=== PATIENT | female | born 1990 | race Caucasian/White ===

== ENCOUNTER → 2018-08-23 12:16 | Outpatient (CLI) | payer OTHER, SELFPAY ==
[2018-08-23 12:39] LABS: Basophils % 0.3 % (0.1-2.0); Eosinophils # 0.1 K/mm3 (0.0-0.4); Eosinophils % 1.4 % (0.1-12.0); Hemoglobin 12.3 g/dL (12.2-16.2); Lymphocytes # 2.2 K/mm3 (0.7-4.5); Lymphocytes % 33.7 % (10-50); Mean Corpuscular HGB Conc 34.3 g/dL (31.8-35.4); Mean Corpuscular Hemoglobin 31.9 pg (27.0-31.2); Mean Corpuscular Volume 92.9 fl (81-99); Mean Platelet Volume 7.1 fl (7.4-10.4); Monocytes # 0.4 K/mm3 (0.1-1.0); Monocytes % 6.8 % (1.7-9.3); Neutrophils # 3.7 K/mm3 (1.8-7.8); Neutrophils % 57.8 % (37.0-80.0); Platelet Count 355 K/mm3 (142-424); Red Blood Count 3.87 M/mm3 (4.20-5.40); Red Cell Distribution Width 12.5 % (11.5-17.5); White Blood Count 6.4 K/mm3 (4.8-10.8)
[2018-08-24 08:40] LABS: HIV Screen 4th Generation wRfx Non Reactive (Non Reactive)
[2018-08-24 23:13] LABS: Hepatitis B Surface Antigen Negative (Negative); Hepatitis C Antibody <0.1 s/co ratio (0.0-0.9); Rapid Plasma Reagin Ab Titer Non Reactive (NonRea<1:1)
== END ==
PROVIDERS: Visit Provider Nurse Practitioner Obstetrics & Gynecology
DX: Z34.90 Encounter for supervision of normal pregnancy, unspecified, unspecified trimester (principal)
CPT/HCPCS: 36415; 85025; 86592; 86703; 86762; 86850; 87340; 87380; G0432

== ENCOUNTER → 2018-08-30 14:16 | Outpatient (CLI) | payer OTHER, SELFPAY ==
--- NOTE | 2018-08-30 14:21 | US_ITS ---
US OB transvaginal HISTORY: ITS.REASON: US OB Dates ORDERING PHYSICIAN: Olegario Huitron MD PATIENT AGE: 28 years COMPARISON: None FINDINGS: There is an intrauterine gestational sac noted. Within this sac there are 2 circular areas of echogenicity which have the appearance of 2 different yolk sacs. A definite pole is not identified. There is a 19 mm right corpus luteum cyst. No cul-de-sac fluid evident. IMPRESSION: There is an each uterine gestational sac however a pole is not identified. But appears to represent 2 different yolk sacs are noted. Cannot confirm viability at this time. Recommend follow-up ultrasound and serial beta hCGs
== END ==
PROVIDERS: PCP Family Medicine; Visit Provider Nurse Practitioner Obstetrics & Gynecology
DX: O26.841 Uterine size-date discrepancy, first trimester (principal); Z34.90 Encounter for supervision of normal pregnancy, unspecified, unspecified trimester
CPT/HCPCS: 36415; 76817; 84702

== ENCOUNTER → 2018-09-06 14:44 | Outpatient (CLI) | payer OTHER, SELFPAY ==
--- NOTE | 2018-09-06 14:47 | US_ITS ---
US OB transvaginal HISTORY: ITS.REASON: US OB Dates ORDERING PHYSICIAN: Olegario Huitron MD PATIENT AGE: 28 years COMPARISON: None FINDINGS: An intrauterine gestational sac is present with a pole with a crown-rump length of 0.50cm correlating to gestational age of 6w2d. heart tones are not identified. There is only one yolk sac noted on today's study. There is a 2 cm right corpus luteum cyst. IMPRESSION: 1. There is an intrauterine gestational sac now with a pole with an estimated gestational age of 6 weeks and 2 days. heart tones are not identified. Recommend follow-up ultrasound to confirm viability. 2. 2 cm right-sided corpus luteum cyst
== END ==
PROVIDERS: PCP Family Medicine; Visit Provider Nurse Practitioner Obstetrics & Gynecology
DX: O26.841 Uterine size-date discrepancy, first trimester (principal)
CPT/HCPCS: 76817

== ENCOUNTER → 2018-09-13 14:38 | Outpatient (CLI) | payer OTHER, SELFPAY ==
--- NOTE | 2018-09-13 14:42 | US_ITS ---
US OB transvaginal HISTORY: ITS.REASON: US OB T/V- check for viable ORDERING PHYSICIAN: Olegario Huitron MD PATIENT AGE: 28 years COMPARISON: None FINDINGS: There is an intrauterine gestational sac present. No pole or yolk sac is evident. The gestational sac has a semilunar appearance. Previously a pole was identified but no heart tones were evident. There is a 2 cm right corpus luteum cyst. IMPRESSION: Nonviable intrauterine gestation. The gestational sac is now empty.
== END ==
PROVIDERS: PCP Family Medicine; Visit Provider Nurse Practitioner Obstetrics & Gynecology
DX: Z34.90 Encounter for supervision of normal pregnancy, unspecified, unspecified trimester (principal)
CPT/HCPCS: 76817

== ENCOUNTER → 2020-01-23 11:41 | Outpatient (CLI) | payer MEDICAID, SELFPAY ==
[2020-01-23 12:13] LABS: Basophils % 0.4 % (0.1-2.0); Eosinophils # 0.1 K/mm3 (0.0-0.4); Eosinophils % 1.1 % (0.1-12.0); Hemoglobin 12.9 g/dL (12.2-16.2); Lymphocytes # 1.9 K/mm3 (0.7-4.5); Mean Corpuscular HGB Conc 34.9 g/dL (31.8-35.4); Mean Corpuscular Hemoglobin 31.8 pg (27.0-31.2); Mean Corpuscular Volume 91.2 fl (81-99); Mean Platelet Volume 7.6 fl (7.4-10.4); Monocytes # 0.5 K/mm3 (0.1-1.0); Monocytes % 6.5 % (1.7-9.3); Neutrophils % 66.9 % (37.0-80.0); Platelet Count 351 K/mm3 (142-424); Red Blood Count 4.06 M/mm3 (4.20-5.40); Red Cell Distribution Width 13.5 % (11.5-17.5); White Blood Count 7.5 K/mm3 (4.8-10.8)
[2020-01-25 18:16] LABS: HIV Screen 4th Generation wRfx Non Reactive (Non Reactive); Hepatitis B Surface Antigen Negative (Negative); Hepatitis C Antibody <0.1 s/co ratio (0.0-0.9); Rapid Plasma Reagin Ab Titer Non Reactive (NonRea<1:1); Rubella Antibodies, IgG 7.24 index (Immune >0.99)
== END ==
PROVIDERS: Visit Provider Nurse Practitioner Obstetrics & Gynecology
DX: Z34.90 Encounter for supervision of normal pregnancy, unspecified, unspecified trimester (principal)
CPT/HCPCS: 36415; 85025; 86592; 86703; 86762; 86850; 87340; 87380; G0432

== ENCOUNTER → 2020-01-28 12:56 | Outpatient (CLI) | payer MEDICAID, SELFPAY ==
--- NOTE | 2020-01-28 12:57 | US_ITS ---
PROCEDURE: US OB TRANSVAGINAL CLINICAL INDICATION: for dates Early Ob ultrasound for dates COMPARISON: US OBTV US OB transvaginal from 09/13/2018 FINDINGS: An intrauterine gestational sac is present with a pole with a crown-rump length of 4.05cm correlating to gestational age of 11weeks. heart tones are present with an FHR of 182bpm. Yolk sac is noted. There is a 17 mm right corpus luteum cyst IMPRESSION: Live IUP at 11 weeks 0 days Estimated due date by Ultrasound is 08/18/2020 Dictated by: Kris Cabrera MD 01/28/2020 19:21 Kris Cabrera MD in [facility] 01/28/2020 19:21
== END ==
PROVIDERS: PCP Nurse Practitioner; Visit Provider Nurse Practitioner Obstetrics & Gynecology
DX: Z34.90 Encounter for supervision of normal pregnancy, unspecified, unspecified trimester (principal)
CPT/HCPCS: 76817

== ENCOUNTER → 2020-04-03 12:43 | Outpatient (CLI) | payer OTHER, SELFPAY ==
--- NOTE | 2020-04-03 12:43 | US_ITS ---
PROCEDURE: US OB /MATERNAL DETAIL CLINICAL INDICATION: 20 weeks gestation Anatomy evaluation COMPARISON: US US OB TRANSVAGINAL from 01/28/2020 FINDINGS: Single viable intrauterine gestation. Breech position. Placenta: Anteriorplacenta grade 1. There is average amount fluid. The cervix appears satisfactory. Closed and measuring 5 cm transabdominal. In length. Complete survey performed and was unremarkable on the submitted images as in PACS. No discrete anomalies identified on survey imaging by technologist. Active fetus. Three-vessel cord with satisfactory umbilical cord insertion. 4- chamber heart noted. There is a nonspecific echogenic focus of the ventricle. Survey of brain & ventricles Unremarkable. Face and neck survey unremarkable. Diaphragm and chest views unremarkable. Abdomen: Both kidneys noted and unremarkable. Stomach noted and satisfactory. Spine: Survey of the spine satisfactory with no anomalies identified nor imaged. Both arms and legs noted. Amniotic Fluid: Adequate. Maternal adnexa: No significant findings. Measurements: Average ultrasound age 20weeks 3days. Gestational Age 20weeks 3days Estimated due date by ultrasound age 0408/18/2020. Estimated weight 348g BPD = 20weeks 2days OFD = 21weeks 3days HC = 20weeks 2days AC = 20weeks 3days FL = 20weeks 3days Growth Percentile= 41%percent% Heart Rate = 156bpm Cerebellum = 1.97cm Humerus = 3.12cm HC/AC is 1.17 CI is 0.72 FL/BPD is 0.70 FL/AC is 0.22 IMPRESSION: Live IUP in breech presentation with an average ultrasound age of 20 weeks and 3 days. There is nonspecific echogenic focus of the left ventricle. Otherwise unremarkable. All parameters correlate. Dictated by: Kris Cabrera MD 04/04/2020 11:00 Kris Cabrera MD in [facility] 04/04/2020 11:00
== END ==
PROVIDERS: PCP Nurse Practitioner; Visit Provider Nurse Practitioner Obstetrics & Gynecology
DX: Z34.90 Encounter for supervision of normal pregnancy, unspecified, unspecified trimester (principal); Z3A.20 20 weeks gestation of pregnancy
CPT/HCPCS: 76811

== ENCOUNTER → 2020-04-08 09:13 | Outpatient (CLI) | payer OTHER, SELFPAY ==
[2020-04-08 09:47] LABS: Basophils % 0.4 % (0.1-2.0); Eosinophils # 0.1 K/mm3 (0.0-0.4); Hematocrit 35.5 % (37.0-47.0); Hemoglobin 12.2 g/dL (12.2-16.2); Lymphocytes # 2.2 K/mm3 (0.7-4.5); Mean Corpuscular HGB Conc 34.3 g/dL (31.8-35.4); Mean Corpuscular Hemoglobin 31.8 pg (27.0-31.2); Mean Corpuscular Volume 92.5 fl (81-99); Mean Platelet Volume 8.1 fl (7.4-10.4); Monocytes # 0.6 K/mm3 (0.1-1.0); Monocytes % 6.8 % (1.7-9.3); Neutrophils # 6.4 K/mm3 (1.8-7.8); Neutrophils % 68.9 % (37.0-80.0); Platelet Count 427 K/mm3 (142-424); Red Blood Count 3.83 M/mm3 (4.20-5.40); Red Cell Distribution Width 13.1 % (11.5-17.5); White Blood Count 9.3 K/mm3 (4.8-10.8)
--- NOTE | 2020-04-08 09:51 | ECG_ITS ---
APPROVED REPORT Exam: Resting ECG HR:73 bpm ECG Measurements Heart Rate 73 AXES IN 224 P 68 QRSd 80 QRS 60 QT 382 T 38 QTc 420 Conclusion Sinus rhythm with sinus arrhythmia with 1st degree AV block Otherwise normal ECG Electronically signed by : Jovon Eid, 04/10/2020 10:22:03
[2020-04-08 10:23] LABS: Chloride 105 mmol/L (98-107); Potassium 4.5 mmoL/L (3.5-5.1); Sodium 135 mmol/L (136-145)
[2020-04-08 10:26] LABS: Alanine Aminotransferase 14 U/L (12-78); Alkaline Phosphatase 81 U/L (38-126); Anion Gap 10.5 mEq/L (5-15); Aspartate Amino Transferase 22 U/L (14-36); Bilirubin,Total 0.3 mg/dl (0.2-1.3); Blood Urea Nitrogen 9 mg/dl (7-17); Carbon Dioxide 24 mmol/L (22.0-30.0); Estimated Glomerular Filt Rate 146 ml/min (>60); GFR (African American) 177 ML/MIN (>60)
[2020-04-08 10:27] LABS: Albumin Level 3.8 g/dl (3.5-5.0); Albumin/Globulin Ratio 1.3 (1.1-1.8); Calcium 9.4 mg/dl (8.4-10.2); Glucose 79 mg/dl (74-100); Total Protein,Serum 6.8 g/dl (6.3-8.2)
[2020-04-08 18:14] LABS: Microscopic, Urine URINE MICROSCOPIC (MICROSCOPIC)
[2020-04-08 18:47] LABS: Appearance,Urine CLEAR (Clear); Bilirubin,Urine Negative (Negative); Blood, Urine Negative (Negative); Color,Urine YELLOW (Yellow); Glucose,Urine (UA) Negative (Negative); Ketones,Urine Negative (Negative); Leukocyte Esterase,Urine Negative (Negative); Nitrate,Urine Negative (Negative); PH,Urine 7.5 (5.0-8.5); Protein,Urine Negative (Negative); Urobilinogen,Urine 0.2 EU/dl (0.2)
[2020-04-08 19:03] LABS: Squamous Epithelial Cell,Urine Occasional #/hpf (0-5); WBC,Urine Occasional #/hpf (0-3)
== END ==
PROVIDERS: Visit Provider Nurse Practitioner Obstetrics & Gynecology
DX: Z34.90 Encounter for supervision of normal pregnancy, unspecified, unspecified trimester (principal); R06.02 Shortness of breath; R53.83 Other fatigue
CPT/HCPCS: 36415; 80053; 81001; 83880; 85025; 93005

== ENCOUNTER → 2020-04-13 12:20 | Outpatient (CLI) | payer OTHER, SELFPAY | PROVIDERS: PCP Nurse Practitioner; Visit Provider Nurse Practitioner Family | DX: R00.2 Palpitations (principal) | CPT/HCPCS: 93270 ==

== ENCOUNTER → 2020-04-15 08:29 | Outpatient (CLI) | payer OTHER, SELFPAY ==
--- NOTE | 2020-04-15 08:30 | CA_ITS ---
APPROVED REPORT EXAM: Comprehensive 2D, Doppler, and color-flow Echocardiogram Flanging Roll Operator: Cristel Manzanares RDCS Ht: 5 ft 5 in Wt: 150lbs BSA: 1.75 BP: 104/39 mmHg Indications: SOA,21 WEEKS ,PALPS 2D Dimensions LVOT 1.70 cm (M/F) 1.5-2.5 M-Mode Dimensions RVDd 1.60 cm (0.9-2.6) LA Diam 3.00 cm (1.9-4.0) LVDd 4.90 cm (3.5-5.7) Ao Diam 2.70 cm (2.0-3.7) LVDs 3.20 cm (3.5-5.7) AV Cusp 1.70 cm (1.5-2.6) IVSd 0.70 cm (0.6-1.1) PWd 0.70 cm (0.6-1.1) EF (Teich) 63.70% FS 34.70% EDV (Teich) 113.00 mL ESV (Teich) 41.00 mL LV Diastology E/A Ratio 1.5 MED E' 14.40 (< 7 cm/sec) E'/MED E' Ratio 7.00 (>14) LAT E' 12.50 (<10 cm/sec) E/LAT E' Ratio 8.10 (>14) Mitral Valve MV E Max Dylan. 101.00 (40-130 cm/s) MV A Velocity 66.10 (40-130 cm/s) E/A Ratio 1.50 Tricuspid Valve TR P. Velocity 223.00 cm/s RAP Estimate 10.00 mmHg RVSP 30.00 mmHg Left Ventricle Left atrium is normal size, left ventricle is normal size, there is preserved left ventricular systolic function, visually estimated ejection fraction 55% with no regional wall motion abnormality, diastolic parameters are within normal range. Right Ventricle Right atrium and right ventricle are normal size and contractility. Aortic Valve Aortic valve is grossly normal, there is no aortic stenosis or aortic insufficiency. Mitral Valve Mitral valve is grossly normal, there is trace mitral regurgitation. Tricuspid Valve Tricuspid valve is grossly normal, there is mild tricuspid regurgitation, calculated right ventricular systolic pressure within normal range. Pulmonic Valve Pulmonic valve is grossly normal. Great Vessels Aortic root is normal size. Inferior vena cava is normal size with normal inspiratory collapse. Pericardium No significant pericardial effusion noted. Conclusion 1. Normal left ventricular size, preserved left ventricular systolic function, visually estimated ejection fraction 55% with no regional wall motion abnormality, diastolic parameters are within normal range. 2. Trace mitral and mild tricuspid regurgitation, calculated right ventricular systolic pressure within normal range, inferior vena cava is normal size with normal inspiratory collapse . 3. No significant pericardial effusion noted. Electronically signed by : Erick Martin, 04/16/2020 15:07:03
== END ==
PROVIDERS: PCP Nurse Practitioner; Visit Provider Nurse Practitioner Family
DX: R06.02 Shortness of breath (principal); R00.2 Palpitations
CPT/HCPCS: 93306

== ENCOUNTER → 2020-04-17 14:47 | Outpatient (CLI) | payer OTHER, SELFPAY ==
[2020-04-17 14:48] LABS: Microscopic, Urine URINE MICROSCOPIC (MICROSCOPIC)
[2020-04-17 15:44] LABS: Appearance,Urine SL CLOUDY (Clear); Bilirubin,Urine Negative (Negative); Blood, Urine Negative (Negative); Color,Urine YELLOW (Yellow); Glucose,Urine (UA) Negative (Negative); Ketones,Urine Negative (Negative); Leukocyte Esterase,Urine 2+ (Negative); Nitrate,Urine Negative (Negative); PH,Urine 7.5 (5.0-8.5); Protein,Urine Negative (Negative); Urobilinogen,Urine 0.2 EU/dl (0.2)
[2020-04-17 16:17] LABS: Bacteria,Urine 3+ /lpf
== END ==
PROVIDERS: Visit Provider Nurse Practitioner Obstetrics & Gynecology
DX: Z3A.22 22 weeks gestation of pregnancy (principal)
CPT/HCPCS: 81001; 87086

== ENCOUNTER 2020-06-01 11:58 | Outpatient (CLI) | payer OTHER, SELFPAY ==
[2020-06-01 12:20] VITALS: BMI 25.7
[2020-06-01 12:40] VITALS: BP 110/62; PULSE 80; RESP 20; TEMP 36.4; O2SAT 99; BMI 25.7
[2020-06-01 12:57] LABS: Microscopic, Urine URINE MICROSCOPIC (MICROSCOPIC)
[2020-06-01 12:59] LABS: Appearance,Urine CLEAR (Clear); Bilirubin,Urine Negative (Negative); Blood, Urine Negative (Negative); Color,Urine YELLOW (Yellow); Glucose,Urine (UA) Negative (Negative); Ketones,Urine Negative (Negative); Leukocyte Esterase,Urine Negative (Negative); Nitrate,Urine Negative (Negative); PH,Urine 6.5 (5.0-8.5); Protein,Urine Negative (Negative); Urobilinogen,Urine 0.2 EU/dl (0.2)
[2020-06-01 13:06] LABS: Fetal Membrane Rupture (Rapid) Negative (Negative)
[2020-06-01 13:10] LABS: Squamous Epithelial Cell,Urine Occasional #/hpf (0-5)
[2020-06-01 13:12] LABS: Amphetamine/Metha Screen,Urine Negative ng/ml (<1000); Benzodiazepines Screen,Urine Negative ng/ml (<200)
[2020-06-01 13:13] LABS: Barbiturates Screen,Urine Negative ng/ml (<200); Cannabinoid Screen,Urine Negative ng/ml (<50)
[2020-06-01 13:14] LABS: Cocaine Screen,Urine Negative ng/ml (<300)
[2020-06-01 13:15] LABS: Opiate Screen,Urine Negative ng/ml (<300); Phencyclidine Screen,Urine Negative ng/ml (<25)
--- NOTE | 2020-06-01 14:17 | HMH.ACPN2 ---
Internal Medicine - PN: Subj *Date: 06/01/20 *Time: 14:17 Interval history: She came to triage with low back pain and abdominal cramps. She is 29 weeks. On the monitor there is no evidence of contractions. The nonstress test is reactive. Urinalysis and AmniSure were negative as well. Exam Vital signs and Labs for Last 24 Hours: Temp Pulse Resp BP Pulse Ox 97.6 F 80 20 110/62 99 06/01/20 12:40 06/01/20 12:40 06/01/20 12:40 06/01/20 12:40 06/01/20 12:40 Laboratory Results - last 24 hr 06/01/20 12:14: Urine Color Yellow, Urine Appearance Clear, Urine pH 6.5, Ur Specific [place] 1.020, Urine Protein Negative, Urine Glucose (UA) Negative, Urine Ketones Negative, Urine Blood Negative, Urine Nitrate Negative, Urine Bilirubin Negative, Urine Urobilinogen 0.2, Ur Leukocyte Esterase Negative, Urine WBC 3-5, Ur Squamous Epith Cells Occasional 06/01/20 12:14: Urine Opiates Screen Negative, Ur Barbituates Screen Negative, Ur Phencyclidine Scrn Negative, Ur Amphetamines Screen Negative, U Benzodiazepines Scrn Negative, Urine Cocaine Screen Negative, U Marijuana (THC) Screen Negative 06/01/20 12:20: Membrane Rupture Negative I & O for Last 24 hours: Intake & Output 05/30/20 05/31/20 06/01/20 06/02/20 11:59 11:59 11:59 11:59 Weight 155 lb - Constitutional no acute distress - *Routine HEENT Exam Head: Present: normocephalic Eye: Present: EOMI, PERRL ENT: Present: mucous membranes moist Assessment and Plan (1) False labor Status: Acute Category: Medical Code(s): O47.9 - False labor, unspecified - Assessment and plan all Dx Assessment and Plan for all problems:: Her nonstress test was reactive and there were no contractions. Her cervix remains long and closed and soft. AmniSure was negative. Urinalysis was negative for urinary tract infection. We will plan to send her home and she will follow up with me again next week.
[2020-06-01 20:57] LABS: Methadone Screen,Urine Negative ng/ml (<300)
== END 2020-06-01 14:03 | disposition home or self-care (01) ==
LOC: OBOUT 12:00 → OB 12:02
PROVIDERS: PCP Nurse Practitioner Obstetrics & Gynecology; Visit Provider Nurse Practitioner Obstetrics & Gynecology
DX: O26.893 Other specified pregnancy related conditions, third trimester (principal); Z3A.28 28 weeks gestation of pregnancy; M54.5 Low back pain
CPT/HCPCS: 59025; 80305; 81001; 84112; G0463

== ENCOUNTER 2020-06-08 10:58 | Outpatient (CLI) | payer OTHER, SELFPAY ==
[2020-06-08 11:26] VITALS: BP 100/53; PULSE 92; RESP 18; O2SAT 98; BMI 27.1
[2020-06-08 11:49] LABS: Microscopic, Urine URINE MICROSCOPIC (MICROSCOPIC)
[2020-06-08 12:21] LABS: Appearance,Urine CLEAR (Clear); Bilirubin,Urine Negative (Negative); Blood, Urine Negative (Negative); Color,Urine YELLOW (Yellow); Glucose,Urine (UA) Negative (Negative); Ketones,Urine Negative (Negative); Leukocyte Esterase,Urine Negative (Negative); Nitrate,Urine Negative (Negative); PH,Urine 7.5 (5.0-8.5); Protein,Urine Negative (Negative); Specific Gravity, Urine 1.015 (1.005-1.030); Urobilinogen,Urine 0.2 EU/dl (0.2)
[2020-06-08 12:31] LABS: Bacteria,Urine 2+ /lpf
[2020-06-08 12:32] LABS: Amorphous Sediment,Urine 1+ /lpf
[2020-06-08 12:33] LABS: Amphetamine/Metha Screen,Urine Negative ng/ml (<1000)
[2020-06-08 12:34] LABS: Barbiturates Screen,Urine Negative ng/ml (<200); Benzodiazepines Screen,Urine Negative ng/ml (<200)
[2020-06-08 12:35] LABS: Cannabinoid Screen,Urine Negative ng/ml (<50); Cocaine Screen,Urine Negative ng/ml (<300)
[2020-06-08 12:36] LABS: Methadone Screen,Urine Negative ng/ml (<300)
[2020-06-08 12:37] LABS: Opiate Screen,Urine Negative ng/ml (<300); Phencyclidine Screen,Urine Negative ng/ml (<25)
== END 2020-06-08 14:18 | disposition home or self-care (01) ==
LOC: OBOUT 10:59 → OB 11:00
PROVIDERS: PCP Nurse Practitioner; Visit Provider Nurse Practitioner Obstetrics & Gynecology
DX: O26.899 Other specified pregnancy related conditions, unspecified trimester (principal); Z3A.29 29 weeks gestation of pregnancy
CPT/HCPCS: 59025; 80305; 81001; 87086; 96365; 96372; G0463

== ENCOUNTER 2020-06-09 11:28 | Outpatient (CLI) | payer OTHER, SELFPAY ==
[2020-06-09 11:46] VITALS: BP 114/66; PULSE 102; RESP 18; TEMP 36.6; O2SAT 99; BMI 25.7
[2020-06-09 11:51] VITALS: BP 114/66; PULSE 102; RESP 18; TEMP 36.6; O2SAT 99
== END 2020-06-09 15:45 | disposition home or self-care (01) ==
LOC: OBOUT 11:29 → OB 11:30
PROVIDERS: PCP Nurse Practitioner Obstetrics & Gynecology; Visit Provider Obstetrics & Gynecology
DX: O47.03 False labor before 37 completed weeks of gestation, third trimester (principal); Z3A.30 30 weeks gestation of pregnancy
CPT/HCPCS: 59025; 96365; 96372; G0463

== ENCOUNTER → 2020-07-02 08:47 | Outpatient (CLI) | payer OTHER, SELFPAY ==
--- NOTE | 2020-07-02 08:47 | US_ITS ---
PROCEDURE: US OB BIOPHYSICAL PROFILE CLINICAL INDICATION: Check JENI Evaluate amniotic fluid index TECHNIQUE: Transabdominal images FINDINGS: Single live fetus is present which is in cephalic presentation. heart tones are 149 beats per minute. Placenta is anterior and grade 1. The amniotic fluid index is 12 cm. Biophysical profile is 8 of 8. The cervix is closed measuring 3 cm. IMPRESSION: Single live fetus is present which is in cephalic presentation. heart tones are 149 beats per minute. Placenta is anterior and grade 1. The amniotic fluid index is 12 cm. Biophysical profile is 8 of 8. Dictated by: Kris Cabrera MD 07/02/2020 15:17 Kris Cabrera MD in [facility] 07/02/2020 15:17
== END ==
PROVIDERS: PCP Nurse Practitioner; Visit Provider Nurse Practitioner Obstetrics & Gynecology
DX: O41.8X31 Other specified disorders of amniotic fluid and membranes, third trimester, fetus 1 (principal)
CPT/HCPCS: 76819

== ENCOUNTER → 2020-07-16 16:56 | Outpatient (CLI) | payer OTHER, SELFPAY | PROVIDERS: Visit Provider Nurse Practitioner Obstetrics & Gynecology | DX: Z34.90 Encounter for supervision of normal pregnancy, unspecified, unspecified trimester (principal); Z3A.35 35 weeks gestation of pregnancy | CPT/HCPCS: 86403 ==

== ENCOUNTER 2020-08-02 19:19 | Outpatient (CLI) | payer OTHER, SELFPAY ==
[2020-08-02 19:39] VITALS: BP 124/63; PULSE 84; RESP 18; TEMP 36.6; O2SAT 100; BMI 29.1
[2020-08-02 20:54] LABS: Microscopic, Urine URINE MICROSCOPIC (MICROSCOPIC)
[2020-08-02 21:17] LABS: Appearance,Urine CLEAR (Clear); Bilirubin,Urine Negative (Negative); Blood, Urine Negative (Negative); Color,Urine YELLOW (Yellow); Glucose,Urine (UA) TRACE (Negative); Ketones,Urine Negative (Negative); Leukocyte Esterase,Urine Negative (Negative); Nitrate,Urine Negative (Negative); PH,Urine 6.5 (5.0-8.5); Protein,Urine Negative (Negative); Specific Gravity, Urine 1.025 (1.005-1.030); Urobilinogen,Urine 0.2 EU/dl (0.2)
[2020-08-02 21:31] LABS: Amphetamine/Metha Screen,Urine Negative ng/ml (<1000)
[2020-08-02 21:32] LABS: Barbiturates Screen,Urine Negative ng/ml (<200)
[2020-08-02 21:33] LABS: Benzodiazepines Screen,Urine Negative ng/ml (<200); Cannabinoid Screen,Urine Negative ng/ml (<50)
[2020-08-02 21:34] LABS: Cocaine Screen,Urine Negative ng/ml (<300)
[2020-08-02 21:35] LABS: Methadone Screen,Urine Negative ng/ml (<300); Opiate Screen,Urine Negative ng/ml (<300)
[2020-08-02 21:36] LABS: Phencyclidine Screen,Urine Negative ng/ml (<25)
== END 2020-08-02 20:15 | disposition home or self-care (01) ==
LOC: OBOUT 19:22 → OB 19:22
PROVIDERS: PCP Nurse Practitioner Obstetrics & Gynecology; Visit Provider Obstetrics & Gynecology
DX: Z34.90 Encounter for supervision of normal pregnancy, unspecified, unspecified trimester (principal)
CPT/HCPCS: 59025; 80305; 81001; G0463

== ENCOUNTER 2020-08-04 23:24 | Inpatient (IN) | payer OTHER, SELFPAY ==
[2020-08-04 19:06] VITALS: BMI 28.8
[2020-08-04 19:09] VITALS: BP 129/75; PULSE 104; RESP 20; TEMP 36.8; O2SAT 99; BMI 28.8
[2020-08-04 19:10] LABS: Microscopic, Urine URINE MICROSCOPIC (MICROSCOPIC)
[2020-08-04 19:12] LABS: Appearance,Urine CLEAR (Clear); Bilirubin,Urine Negative (Negative); Blood, Urine Negative (Negative); Color,Urine YELLOW (Yellow); Glucose,Urine (UA) Negative (Negative); Ketones,Urine Negative (Negative); Leukocyte Esterase,Urine Negative (Negative); Nitrate,Urine Negative (Negative); Protein,Urine Negative (Negative); Specific Gravity, Urine 1.015 (1.005-1.030); Urobilinogen,Urine 0.2 EU/dl (0.2)
[2020-08-04 19:22] LABS: Fetal Membrane Rupture (Rapid) Negative (Negative)
[2020-08-04 19:23] LABS: Benzodiazepines Screen,Urine Negative ng/ml (<200)
[2020-08-04 19:24] LABS: Amphetamine/Metha Screen,Urine Negative ng/ml (<1000)
[2020-08-04 19:25] LABS: Barbiturates Screen,Urine Negative ng/ml (<200); Cannabinoid Screen,Urine Negative ng/ml (<50)
[2020-08-04 19:26] LABS: Cocaine Screen,Urine Negative ng/ml (<300)
[2020-08-04 19:27] LABS: Methadone Screen,Urine Negative ng/ml (<300); Opiate Screen,Urine Negative ng/ml (<300)
[2020-08-04 19:28] LABS: Phencyclidine Screen,Urine Negative ng/ml (<25)
[2020-08-04 19:36] LABS: Squamous Epithelial Cell,Urine Occasional #/hpf (0-5); WBC,Urine Occasional #/hpf (0-3)
[2020-08-04 21:48] LABS: Basophils % 0.3 % (0.1-2.0); Eosinophils # 0.1 K/mm3 (0.0-0.4); Eosinophils % 0.9 % (0.1-12.0); Hematocrit 32.8 % (37.0-47.0); Hemoglobin 10.6 g/dL (12.2-16.2); Lymphocytes % 23.9 % (10-50); Mean Corpuscular HGB Conc 32.2 g/dL (31.8-35.4); Mean Corpuscular Hemoglobin 25.3 pg (27.0-31.2); Mean Corpuscular Volume 78.5 fl (81-99); Mean Platelet Volume 8.3 fl (7.4-10.4); Monocytes # 0.8 K/mm3 (0.1-1.0); Monocytes % 6.1 % (1.7-9.3); Neutrophils # 8.7 K/mm3 (1.8-7.8); Neutrophils % 68.7 % (37.0-80.0); Platelet Count 459 K/mm3 (142-424); Red Blood Count 4.18 M/mm3 (4.20-5.40); Red Cell Distribution Width 14.9 % (11.5-17.5); White Blood Count 12.7 K/mm3 (4.8-10.8)
[2020-08-04 22:09] VITALS: BP 111/74; PULSE 82; RESP 18; O2SAT 100
[2020-08-04 23:00] VITALS: BP 116/69; PULSE 75; RESP 18; O2SAT 98
[2020-08-05 04:00] VITALS: BP 111/57; PULSE 75; RESP 17; TEMP 36.4; O2SAT 100
[2020-08-05 07:25] VITALS: BP 121/68; PULSE 78; RESP 17; TEMP 36.7; O2SAT 99
--- NOTE | 2020-08-05 09:58 | HMH.LABNOT ---
Labor Note - Subjective: Date: 08/05/20 Time: 09:58 regular contraction - Objective: NST:: Reactive Cervical Dilation:: 4 Effacement:: 75% Station: -2 Membranes: artificially ruptured Comment:: I ruptured her membranes and there was clear fluid. - Fetus: Monitoring?: Yes monitoring type:: Internal and External Comment:: I inserted an IUPC. - Assessment: Labor progressing?: Yes Cephalopelvic disproportion?: No Patient Problems: All Active Problems False labor (Acute) SOB (shortness of breath) on exertion (Acute) Hypotension (Acute) Palpitations (Acute) (Acute) - Plan: Anesthesia for epidural?: Yes Continue to labor down?: Yes Plan for ?: No Continue to monitor?: Yes Start pushing?: No
--- NOTE | 2020-08-05 09:59 | HMH.OBAPHP ---
OB - H&P: HPI Antepartum - History of Present Illness Chief complaint: Regular contractions with changes in the cervix History of present illness: She is 30-year-old 5 para 2 aborta 2 who was 38 and 1 weeks gestational age. She came in in active labor and was found to have changed her cervix to 4 cm. As result of that as she is admitted for delivery. - History of Present Criteria for establishing EDC:: LMP confirmed by 1st trimester US care: good care Ultrasounds: normal 1st trimester US, normal mid trimester US Obstetrical complications: labor Medical complications: none - Labs Blood type: O (+) positive Rubella: immune RPR/VDRL: nonreactive GBS status: negative HBsAG: negative [facility] History I have reviewed the patient's past medical history: Yes Medical History: Reports:: Heart Murmur Denies:: Cancer, Diabetes Mellitus Type 1, Diabetes Mellitus Type 2, Internal Pacemaker, MRSA, Seizures *Have you ever received a pneumonia vaccine?: No *Have you received a flu vaccine this season?: No Other Medical History: Denies: Blood Transfusion Reaction Other Surgeries: Yes: Cholecystectomy. No: , Pacemaker Amputation: No Fractures: No - *Social History Smoking Status: Current every day smoker Tobacco Type: cigarettes # Packs/Day (cigarettes): 1 #Yrs smoked (if former smoker): 10 Alcohol Intake: never Alcohol Intake Frequency:: other Substance Use Type: denies use *Occupational Status:: employed Housing: house Household Members: spouse *Travel in the last 8 weeks: None Family Hx:: No significant family history Para: 2 Review of Systems - Review of Systems Review of systems:: pertinent systems reviewed and negative unless documented below Meds Home Medications Medication Instructions Recorded Confirmed Type PNV 153-FA 400 mcg-om3 35 mg-dha 1 tab PO DAILY tab 04/13/20 08/04/20 History 25 mg-epa 5 mg-fish oil chew tablet Allergies Allergy/AdvReac Type Severity Reaction Status Date / Time ciprofloxacin [From CIPRO] Allergy Unknown Verified 07/28/20 11:33 hydrocodone [From LORTAB] Allergy Unknown PATIENT Verified 07/28/20 11:33 CAN TAKE PLAIN TYLENOL latex [LATEX] Allergy Unknown Verified 07/28/20 11:33 OB - H&P: Exam - Physical Exam Vital signs: Temp Pulse Resp BP Pulse Ox 98.0 F 78 17 121/68 99 08/05/20 07:25 08/05/20 07:25 08/05/20 07:25 08/05/20 07:25 08/05/20 07:25 - Constitutional no acute distress - Routine HEENT Exam Head: Present: normocephalic Eye: Present: EOMI, PERRL ENT: Present: mucous membranes moist - Routine Neck Exam Present: supple, full ROM - Routine Respiratory Exam Absent: accessory muscle use (good air entry bilaterally), respiratory distress, wheezes, crackles - Routine Cardiovascular Exam Present: RRR. Absent: murmur - Routine Abdominal Exam Present: soft, normoactive bowel sounds. Absent: tenderness, distended, guarding - Routine Rectal Exam Patient deferred: visual exam, digital exam - Routine Exam Patient deferred: external exam, groin exam, perineal exam - Routine Extremities Exam Present: full ROM. Absent: cyanosis, edema - Routine Skin Exam Present: intact. Absent: cyanosis - Routine Neurological Exam Present: alert, oriented X3 - Routine Psychiatric Exam Present: normal affect OB - Results - Labs Labs: Short CBC 08/04/20 Range/Units 21:30 WBC 12.7 H (4.8-10.8) K/mm3 Hgb 10.6 L (12.2-16.2) g/dL Hct 32.8 L (37.0-47.0) % Plt Count 459 H (142-424) K/mm3 Urine 08/04/20 Range/Units 18:41 Urine Color Yellow (Yellow) Urine Appearance Clear (Clear) Urine pH 7.0 (5.0-8.5) Ur Specific [place] 1.015 (1.005-1.030) Urine Protein Negative (Negative) Urine Glucose (UA) Negative (Negative) OB - A/P Antepartum (1) Normal delivery Status: Acute - Additional Plan Planning to tanmay
[2020-08-05 11:35] VITALS: BP 133/66; PULSE 88; RESP 20; TEMP 36.9
--- NOTE | 2020-08-05 12:07 | HMH.DN ---
- Delivery Note Delivery Date:: 08/05/20 Delivery Time:: 11:48 Anesthesia Type: None Was labor medically induced?: No Induction method: none Gestational age (weeks): 38 delivered prior to 39 weeks?: Yes Justification for early elective delivery:: Active Labor Infant Gender: Male at 1 minute: 9 at 5 minutes: 9 Delivery Procedure:: She is a 30-year-old 5 para 3 aborta 2 now who was 38 weeks gestational age. She came in in active labor and was found to be 4 to 5 cm dilated. She was augmented with oxytocin and had her membranes ruptured. She progressed to full dilation and delivered spontaneously a liveborn male child at 11:48 AM on the morning of August 05, 2020. On deliver the head it was noted that there was a loose nuchal cord x2 and these were reduced. This was followed by deliver the anterior shoulder and the rest the infant's body atraumatically. The baby cried spontaneously and was quite vigorous. We allowed the cord to continue to pulsate for approximately 1 minute. The nasopharynx and oropharynx were bulb suction. The cord was then doubly clamped and cut and the was placed on the mother's abdomen for further care. The nurses assigned Apgars of 9 at 1 minute and 9 at 5 minutes. She received IV oxytocin and using gentle traction on the cord and countertraction on the fundus I was able to easily deliver the placenta intact. He had a normal three-vessel cord. There were no perineal or vaginal lacerations. She has O Rh+ blood, she is rubella immune and was group B streptococcus negative. She plans to bottlefeed. Her attic fans mechanic is Dr. Newman. Estimated blood loss was approximately 300 cc. Placental Delivery Description: Spontaneous
[2020-08-05 12:08] LABS: Cord Blood PH 7.39 (7.35-7.45)
[2020-08-05 15:59] VITALS: BP 123/71; PULSE 82; RESP 18; TEMP 36.7; O2SAT 99
[2020-08-05 20:16] VITALS: BP 115/67; PULSE 91; RESP 17; TEMP 36.7; O2SAT 99
[2020-08-06 04:00] VITALS: BP 112/56; PULSE 89; RESP 18; TEMP 36.7; O2SAT 99
[2020-08-06 06:47] LABS: Hematocrit 26.9 % (37.0-47.0); Hemoglobin 8.5 g/dL (12.2-16.2)
[2020-08-06 07:59] VITALS: BP 109/52; PULSE 86; RESP 17; TEMP 36.7; O2SAT 98
--- NOTE | 2020-08-06 08:26 | HMH.OBDCSM ---
General - General Admission date:: 08/04/20 Discharge date: 08/06/20 Hospital Course Rhogam Administration: Not Indicated Objective Vital signs: Temp Pulse Resp BP Pulse Ox 98.1 F 89 18 112/56 L 99 08/06/20 04:00 08/06/20 04:00 08/06/20 04:00 08/06/20 04:00 08/06/20 04:00 Results Labs on day of discharge: Labs from last 24 hours 08/06/20 08/05/20 06:12 12:04 Hgb 8.5 L Hct 26.9 L Cord ABG pH 7.39 DS: Diagnosis - Discharge Diagnosis (1) Normal delivery Status: Acute Discharge Plan - Patient Discharge Instructions Additional Instructions: *No Heavy Lifting *NO strenuous activity *NOTHING in the Vagina for 6 WEEKS Patient Instructions: Depression, Hemorrhage, DI for Labor and Delivery, Vaginal , DI for Pre-eclampsia, [facility] Post Discharge Instructions, Preventing the Spread of Coronavirus Discharge Instructions - Follow up Plan Follow up with: Olegario Huitron MD [Staff Physician] - Home Medications: Home Medications Medication Instructions Recorded Confirmed Type PNV 153-FA 400 mcg-om3 35 mg-dha 1 tab PO DAILY tab 04/13/20 08/04/20 History 25 mg-epa 5 mg-fish oil chew tablet Prescriptions/Medication Reconciliation: No Action PNV 153-FA 400 mcg-om3 35 mg-dha 25 mg-epa 5 mg-fish oil chew tablet 1 tab PO DAILY tab - Problem Reconciliation Problems Reviewed?: Yes
--- NOTE | 2020-08-06 08:30 | HMH.ACPN2 ---
Internal Medicine - PN: Subj *Date: 08/06/20 *Time: 08:30 Interval history: She is doing well 1 day post vaginal delivery. She is eating and drinking and ambulating. She is bottlefeeding. Her lochia is normal. Her hemoglobin is slightly low but she started out low. We will start iron and vitamins. She will also take these when she goes home. Exam Vital signs and Labs for Last 24 Hours: Temp Pulse Resp BP Pulse Ox 98.1 F 89 18 112/56 L 99 08/06/20 04:00 08/06/20 04:00 08/06/20 04:00 08/06/20 04:00 08/06/20 04:00 Laboratory Results - last 24 hr 08/05/20 12:04: Cord ABG pH 7.39 08/06/20 06:12: Hgb 8.5 L, Hct 26.9 L I & O for Last 24 hours: Intake & Output 08/03/20 08/04/20 08/05/20 08/06/20 11:59 11:59 11:59 11:59 Weight 173 lb - Constitutional no acute distress - *Routine HEENT Exam Head: Present: normocephalic Eye: Present: EOMI, PERRL ENT: Present: mucous membranes moist Assessment and Plan (1) Normal delivery Status: Acute Category: Medical Code(s): O80 - Encounter for full-term uncomplicated delivery - Assessment and plan all Dx Assessment and Plan for all problems:: She is doing well. We will plan to send her home tomorrow. She will start iron tablets.
[2020-08-06 11:27] VITALS: BP 123/57; PULSE 88; RESP 16; TEMP 36.4; O2SAT 99
[2020-08-06 16:50] VITALS: BP 109/60; PULSE 81; RESP 18; TEMP 36.8; O2SAT 99
[2020-08-07 08:30] VITALS: BP 127/72; PULSE 88; RESP 20; TEMP 36.7; O2SAT 99
--- NOTE | 2020-08-07 09:05 | HMH.OBDCSM ---
General - General Admission date:: 08/04/20 Discharge date: 08/07/20 HPI - History of Present Illness History of present illness: She is a 30-year-old 5 now para 3 aborta 2 who came in in active labor at 38 weeks gestational age. She was found to be 5 cm dilated. Hospital Course Hospital Course: She was augmented with oxytocin and had her membranes ruptured. She progressed rapidly to full dilation and delivered spontaneously a liveborn male child on August 05, 2020. The baby weighed 6 pounds 10 ounces and was 19 inches long. He had Apgars of 9 at 1 minute and 9 at 5 minutes. She has done well and has remained afebrile throughout her hospitalization. She is eating and drinking and ambulating. She is bottlefeeding. Her lochia is normal. She has O Rh+ blood, she is rubella immune and was group B streptococcus negative. She is discharged home to follow-up with me in approximately 2 weeks time. She will continue with her vitamins and iron. She is taking [id number] analgesics. She was given the usual instructions with respect to limiting her activity, driving and sexual activity. Her condition on discharge is stable and improved. Rhogam Administration: Not Indicated Objective Vital signs: Temp Pulse Resp BP Pulse Ox 98.2 F 81 18 109/60 L 99 08/06/20 16:50 08/06/20 16:50 08/06/20 16:50 08/06/20 16:50 08/06/20 16:50 no acute distress - *Routine HEENT Exam Head: Present: normocephalic Eye: Present: EOMI, PERRL ENT: Present: mucous membranes moist DS: Diagnosis - Discharge Diagnosis (1) Normal delivery Status: Acute Discharge Plan - Patient Discharge Instructions ACTIVITY: No heavy lifting DIET: continue same diet Additional Instructions: *No Heavy Lifting *NO strenuous activity *NOTHING in the Vagina for 6 WEEKS Patient Instructions: Depression, Hemorrhage, DI for Labor and Delivery, Vaginal , DI for Pre-eclampsia, [facility] Post Discharge Instructions, Preventing the Spread of Coronavirus Discharge Instructions - Follow up Plan Follow up with: Olegario Huitron MD [Staff Physician] - Disposition: Home, Self-Long-Term Medications: Home Medications Medication Instructions Recorded Confirmed Type PNV 153-FA 400 mcg-om3 35 mg-dha 1 tab PO DAILY tab 04/13/20 08/04/20 History 25 mg-epa 5 mg-fish oil chew tablet Prescriptions/Medication Reconciliation: Continued PNV 153-FA 400 mcg-om3 35 mg-dha 25 mg-epa 5 mg-fish oil chew tablet 1 tab PO DAILY tab - Problem Reconciliation Problems Reviewed?: Yes
== END 2020-08-07 11:28 | disposition home or self-care (01) | DRG 807 ==
LOC: OBOUT 23:29 → OB 23:29
PROVIDERS: Admitting Provider Nurse Practitioner Obstetrics & Gynecology; PCP Obstetrics & Gynecology; Visit Provider Nurse Practitioner Obstetrics & Gynecology
DX: O69.81X0 Labor and delivery complicated by cord around neck, without compression, not applicable or unspecified (principal); Z37.0 Single live birth; Z3A.38 38 weeks gestation of pregnancy
CPT/HCPCS: 59409; 36415; 59025; 80305; 81001; 82800; 84112; 85014; 85018; 85025; 86850; 96360; C1758; G0463; U0003

== ENCOUNTER 2023-06-29 06:58 | Outpatient (CLI) | payer OTHER, SELFPAY ==
--- NOTE | 2023-06-29 07:08 | US_ITS ---
PROCEDURE: US OB <= 14 WEEKS FETUS CLINICAL INDICATION: FOR DATES AND VIABILITY COMPARISON: No exams were available for comparison FINDINGS: Transvaginal sonographic images of the pelvis were obtained. From her last menstrual period she is 7weeks 6days. An intrauterine gestational sac is present with a pole with a crown-rump length of 1.43cm This correlates to a gestational age of 7weeks 6days. heart tones are present with an FHR of 156bpm. Yolk sac is noted. The yolk sac measures 4.7mm. The right ovary is seen and appears normal. There is a corpus luteum in the right ovary measuring 2.1 cm x 1.8 cm. The left ovary is seen and contains a large cyst. The left ovary is enlarged and measures 7.1 cm x 6.7 cm x 6.2 cm. The entire ovary is a benign simple cyst. Minimal stroma. The cyst measures 6.2 cm x 5.7 cm x 5.7 cm. There is trace fluid in the cul-de-sac. IMPRESSION: 1. Within the uterine cavity is a viable . 2. [place]-rump length measures 7 weeks 6 days. MARTY will be February 09, 2024. 3. There is a corpus luteum on the right ovary. 4. There is a benign cyst measuring 6.2 cm in the left ovary. 5. Trace fluid in the cul-de-sac. Dictated by: Olegario Huitron MD 06/29/2023 09:53 Olegario Huitron MD in [place] 06/29/2023 09:53
== END 2023-06-29 23:59 ==
LOC: RAD 06:58
PROVIDERS: PCP Nurse Practitioner; Visit Provider Nurse Practitioner Obstetrics & Gynecology
DX: O20.9 Hemorrhage in early pregnancy, unspecified (principal); O36.80X0 Pregnancy with inconclusive fetal viability, not applicable or unspecified; Z3A.01 Less than 8 weeks gestation of pregnancy
CPT/HCPCS: 76801

== ENCOUNTER 2023-07-03 16:19 | Outpatient (CLI) | payer OTHER, SELFPAY ==
[2023-07-03 16:51] LABS: Basophils % 0.2 % (0.1-2.0); Eosinophils # 0.2 K/mm3 (0.0-0.4); Eosinophils % 1.5 % (0.1-12.0); Hemoglobin 10.1 g/dL (12.2-16.2); Lymphocytes # 2.5 K/mm3 (0.7-4.5); Lymphocytes % 23.7 % (10-50); Mean Corpuscular HGB Conc 32.6 g/dL (31.8-35.4); Mean Corpuscular Hemoglobin 25.9 pg (27.0-31.2); Mean Corpuscular Volume 79.5 fl (81-99); Mean Platelet Volume 7.5 fl (7.4-10.4); Monocytes # 0.5 K/mm3 (0.1-1.0); Monocytes % 4.8 % (1.7-9.3); Neutrophils # 7.4 K/mm3 (1.8-7.8); Neutrophils % 69.8 % (37.0-80.0); Platelet Count 488 K/mm3 (142-424); Red Cell Distribution Width 15.8 % (11.5-17.5); White Blood Count 10.6 K/mm3 (4.8-10.8)
[2023-07-04 10:32] LABS: HIV Screen 4th Generation wRfx Non Reactive (Non Reactive); Rubella Antibodies, IgG 5.55 index (Immune >0.99)
[2023-07-04 11:57] LABS: Rapid Plasma Reagin Ab Titer Non Reactive titer (NonRea<1:1)
[2023-07-07 10:16] LABS: Hepatitis B Surface Antigen Negative; Hepatitis C Antibody Non Reactive
== END 2023-07-03 23:59 ==
LOC: LAB 16:20
PROVIDERS: PCP Nurse Practitioner; Visit Provider Nurse Practitioner Obstetrics & Gynecology
DX: O26.891 Other specified pregnancy related conditions, first trimester (principal); Z3A.08 8 weeks gestation of pregnancy
CPT/HCPCS: 36415; 85025; 86593; 86703; 86762; 86850; 87340; 87380; G0432

== ENCOUNTER 2023-08-07 16:19 | Outpatient (CLI) | payer OTHER, SELFPAY | END 2023-08-07 23:59 | LOC: LAB.DROPOF 16:19 | PROVIDERS: PCP Nurse Practitioner Obstetrics & Gynecology; Visit Provider Nurse Practitioner Obstetrics & Gynecology | DX: O26.891 Other specified pregnancy related conditions, first trimester (principal); B96.89 Other specified bacterial agents as the cause of diseases classified elsewhere; Z3A.13 13 weeks gestation of pregnancy | CPT/HCPCS: 87086 ==

== ENCOUNTER 2023-09-14 14:11 | Outpatient (CLI) | payer OTHER, SELFPAY ==
--- NOTE | 2023-09-14 14:12 | US_ITS ---
PROCEDURE: US OB /MATERNAL DETAIL CLINICAL INDICATION: 20 week anatomy scan COMPARISON: US US OB <= 14 WEEKS FETUS from 06/29/2023 FINDINGS: Transabdominal sonographic images of the pelvis were obtained. From her established due date she is 18 weeks 6 days. Single viable intrauterine gestation. Breech position. Placenta: Posteriorplacenta grade 1. Low lying and 1.2 cm from the internal os. There is an average amount of fluid. The cervix appears satisfactory. Closed and measuring 4.5 cm. In length. Complete survey performed and was unremarkable on the submitted images as in PACS. No discrete anomalies identified on survey imaging by technologist. Active fetus. Three-vessel cord with satisfactory umbilical cord insertion. 4- chamber heart noted. Situs, aortic arch, LVOT, RVOT, three-vessel view appear normal. Survey of brain & ventricles Unremarkable. Cerebellum, thalamus, choroid plexus, cisterna magna appear normal. Face and neck survey unremarkable. Profile, nasion, lips and nose appeared normal. Diaphragm and chest views unremarkable. Abdomen: Both kidneys noted and unremarkable. Stomach and bladder noted and satisfactory. Spine: Survey of the spine satisfactory with no anomalies identified nor imaged. Cervical, thoracic, lower spine appear normal. Both arms and legs noted. Amniotic Fluid: Adequate. Measurements: Average ultrasound age 19weeks 1day. Estimated due date by ultrasound age 1002/07/2024. Estimated weight 269g BPD = 19weeks 2days HC = 18weeks 5days AC = 18weeks 5days FL = 19weeks 3days Growth Percentile= 55 Heart Rate = 158bpm Cerebellum = 18weeks 4days Humerus = 19weeks 1day HC/AC is 1.2 FL/BPD is 0.7 FL/AC is 0.23 IMPRESSION: 1. Viable fetus in the breech presentation with a posterior placenta grade 1. The placenta is low lying and 1.2-2 centimeters from the internal os. 2. The fluid is within normal limits. 3. Anatomical scan appears normal. 4. biometry is consistent with the dates. 5. No obvious cause for vaginal bleeding seen. 6. Suggest repeat scan at 28 weeks to see resolution of low-lying posterior placenta. Dictated by: Olegario Huitron MD 09/14/2023 17:50 Olegario Huitron MD in [place] 09/14/2023 17:50
== END 2023-09-14 23:59 | disposition home or self-care (01) ==
LOC: RAD 14:12
PROVIDERS: PCP Nurse Practitioner; Visit Provider Nurse Practitioner Obstetrics & Gynecology
DX: O26.892 Other specified pregnancy related conditions, second trimester (principal); Z36.89 Encounter for other specified antenatal screening; Z3A.20 20 weeks gestation of pregnancy
CPT/HCPCS: 76811

== ENCOUNTER 2023-11-06 15:34 | Outpatient (CLI) | payer OTHER, SELFPAY ==
[2023-11-06 15:49] VITALS: BMI 28.6
[2023-11-06 15:59] VITALS: BP 103/67; PULSE 79; RESP 18; TEMP 36.8; O2SAT 100; BMI 28.6
[2023-11-06 15:59] LABS: Microscopic, Urine URINE MICROSCOPIC (MICROSCOPIC)
[2023-11-06 16:02] LABS: Appearance,Urine CLEAR (Clear); Bilirubin,Urine Negative (Negative); Blood, Urine Negative (Negative); Color,Urine YELLOW (Yellow); Glucose,Urine (UA) Negative (Negative); Ketones,Urine Negative (Negative); Leukocyte Esterase,Urine 1+ (Negative); Nitrate,Urine Negative (Negative); Protein,Urine Negative (Negative); Urobilinogen,Urine 0.2 EU/dl (0.2)
[2023-11-06 16:11] LABS: Bacteria,Urine Trace /lpf; Mucus,Urine 1+ /lpf; RBC,Urine Occasional #/hpf (0-3); Squamous Epithelial Cell,Urine TNTC #/hpf (0-5)
[2023-11-06 16:15] LABS: Amphetamine/Metha Screen,Urine Negative ng/ml (<1000); Barbiturates Screen,Urine Negative ng/ml (<200)
[2023-11-06 16:16] LABS: Benzodiazepines Screen,Urine Negative ng/ml (<200)
[2023-11-06 16:17] LABS: Cannabinoid Screen,Urine Negative ng/ml (<50); Cocaine Screen,Urine Negative ng/ml (<300)
[2023-11-06 16:18] LABS: Methadone Screen,Urine Negative ng/ml (<300)
[2023-11-06 16:19] LABS: Opiate Screen,Urine Negative ng/ml (<300); Phencyclidine Screen,Urine Negative ng/ml (<25)
[2023-11-06] MEDS: LACTATED RINGERS 1000ML 1,000 ML 999 ML IV (17:15)
[2023-11-06] MEDS: CEFAZOLIN SODIUM 2 GM in 0.9 % SODIUM CHLORIDE 100 ML IV (17:15)
== END 2023-11-06 18:19 | disposition home or self-care (01) ==
LOC: OBOUT 15:36 → OB 15:36
PROVIDERS: PCP Nurse Practitioner; Visit Provider Nurse Practitioner Obstetrics & Gynecology
DX: O36.8120 Decreased fetal movements, second trimester, not applicable or unspecified (principal); Z3A.26 26 weeks gestation of pregnancy
CPT/HCPCS: 80307; 81001; 87086; G0463; J7120

== ENCOUNTER 2023-11-13 11:45 | Outpatient (CLI) | payer OTHER, SELFPAY ==
[2023-11-13 12:16] LABS: Basophils % 0.3 % (0.1-2.0); Eosinophils # 0.1 K/mm3 (0.0-0.4); Eosinophils % 1.1 % (0.1-12.0); Hematocrit 29.9 % (37.0-47.0); Hemoglobin 9.8 g/dL (12.2-16.2); Lymphocytes # 1.7 K/mm3 (0.7-4.5); Lymphocytes % 18.1 % (10-50); Mean Corpuscular HGB Conc 32.8 g/dL (31.8-35.4); Mean Corpuscular Hemoglobin 25.8 pg (27.0-31.2); Mean Corpuscular Volume 78.4 fl (81-99); Mean Platelet Volume 7.9 fl (7.4-10.4); Monocytes # 0.6 K/mm3 (0.1-1.0); Monocytes % 6.1 % (1.7-9.3); Neutrophils % 74.4 % (37.0-80.0); Platelet Count 415 K/mm3 (142-424); Red Blood Count 3.81 M/mm3 (4.20-5.40); Red Cell Distribution Width 17.3 % (11.5-17.5); White Blood Count 9.4 K/mm3 (4.8-10.8)
[2023-11-13 12:17] LABS: Glucose,Fasting 87 mg/dl (74-100)
[2023-11-13 13:45] LABS: Glucose 1 Hour 116 mg/dL (74-100)
== END 2023-11-13 23:59 | disposition home or self-care (01) ==
PROVIDERS: PCP Nurse Practitioner; Visit Provider Nurse Practitioner Obstetrics & Gynecology
DX: Z34.90 Encounter for supervision of normal pregnancy, unspecified, unspecified trimester (principal); Z3A.23 23 weeks gestation of pregnancy
CPT/HCPCS: 36415; 82951; 85025

== ENCOUNTER 2023-11-14 12:53 | Outpatient (CLI) | payer OTHER, SELFPAY ==
--- NOTE | 2023-11-14 12:53 | US_ITS ---
PROCEDURE: US OB FOLLOW UP CLINICAL INDICATION: low lying placenta COMPARISON: No exams were available for comparison FINDINGS: Transabdominal sonographic images of the pelvis were obtained. The following parameters are obtained: From her established due date she is 27weeks 4days Viable fetus in the cephalic presentation with a posterior placenta grade 2. The placenta appears to be well away from the cervix. The cervix measures 3.5 cm. heart rate: 153bpm bpm. BPD: 27weeks 5days, 42 percent HC: 27weeks 6day, 28 percentile AC: 27weeks 2days, 30 percentile FL: 28weeks 4days, 63 percentile HC/AC: 1.12 FL/BPD: 0.78 FL/AC: 0.24 Growth percentile: 43 Amniotic fluid: MVP 4.68 cm. No obvious anomalies evident. profile seen, stomach, bladder, kidneys, three-vessel cord, four chamber heart appear normal. IMPRESSION: 1. Viable fetus in the cephalic presentation with a posterior placenta grade 2. 2. The placenta is no longer low lying and appears to be well away from the cervix. 3. The fluid is within normal limits with an MVP of 4.68 cm. 4. There has been good interval growth with the fetus currently 43rd percentile. 5. Limited anatomical scan appears normal. Dictated by: Olegario Huitron MD 11/14/2023 15:33 Olegario Huitron MD in [place] 11/14/2023 15:33
== END 2023-11-14 23:59 | disposition home or self-care (01) ==
LOC: RAD 12:53
PROVIDERS: PCP Nurse Practitioner Obstetrics & Gynecology; Visit Provider Nurse Practitioner Obstetrics & Gynecology
DX: O44.42 Low lying placenta NOS or without hemorrhage, second trimester (principal); Z3A.27 27 weeks gestation of pregnancy
CPT/HCPCS: 76816

== ENCOUNTER 2023-11-23 15:49 | Outpatient (CLI) | payer OTHER, SELFPAY ==
[2023-11-23 16:02] VITALS: BMI 29.9
[2023-11-23 16:07] LABS: Microscopic, Urine URINE MICROSCOPIC (MICROSCOPIC)
[2023-11-23 16:19] VITALS: BP 125/71; PULSE 88; RESP 19; TEMP 36.7; O2SAT 99; BMI 29.9
[2023-11-23 16:19] LABS: Appearance,Urine CLEAR (Clear); Bilirubin,Urine Negative (Negative); Blood, Urine Negative (Negative); Color,Urine YELLOW (Yellow); Glucose,Urine (UA) Negative (Negative); Ketones,Urine 1+ (Negative); Leukocyte Esterase,Urine Negative (Negative); Nitrate,Urine Negative (Negative); Protein,Urine Negative (Negative); Urobilinogen,Urine 0.2 EU/dl (0.2)
[2023-11-23 16:25] VITALS: BP 125/79; RESP 17
[2023-11-23 16:34] LABS: Bacteria,Urine Trace /lpf
[2023-11-23 16:43] LABS: Barbiturates Screen,Urine Negative ng/ml (<200)
[2023-11-23 16:44] LABS: Amphetamine/Metha Screen,Urine Negative ng/ml (<1000); Benzodiazepines Screen,Urine Negative ng/ml (<200)
[2023-11-23 16:45] LABS: Cannabinoid Screen,Urine Negative ng/ml (<50); Cocaine Screen,Urine Negative ng/ml (<300)
[2023-11-23 16:46] LABS: Methadone Screen,Urine Negative ng/ml (<300)
[2023-11-23 16:47] LABS: Opiate Screen,Urine Negative ng/ml (<300); Phencyclidine Screen,Urine Negative ng/ml (<25)
[2023-11-23] MEDS: ONDANSETRON 4MG/2ML VIAL 4 MG IV (16:56)
[2023-11-23] MEDS: diphenhydrAMINE 25MG CAPSULE 50 MG PO (16:56)
[2023-11-23] MEDS: ACETAMINOPHEN 500MG TAB 1000 MG PO (16:56)
[2023-11-23] MEDS: LACTATED RINGERS 1000ML 1,000 ML 999 ML IV (16:58)
== END 2023-11-23 18:29 | disposition home or self-care (01) ==
LOC: OBOUT 15:51 → OB 15:52
PROVIDERS: Obstetrics & Gynecology; Visit Provider Nurse Practitioner Obstetrics & Gynecology
DX: O26.893 Other specified pregnancy related conditions, third trimester (principal); Z3A.28 28 weeks gestation of pregnancy; R51.9 Headache, unspecified; H53.8 Other visual disturbances
CPT/HCPCS: 80307; 81001; G0463; J2405; J7120

== ENCOUNTER 2023-12-18 21:26 | Observation (INO) | payer OTHER, SELFPAY ==
[2023-12-18 20:18] VITALS: BMI 31.2
[2023-12-18 20:33] VITALS: BP 117/76; PULSE 96; RESP 18; TEMP 36.8; O2SAT 98; BMI 31.2
[2023-12-18 20:33] LABS: Microscopic, Urine URINE MICROSCOPIC (MICROSCOPIC)
[2023-12-18 20:37] LABS: Appearance,Urine CLEAR (Clear); Bilirubin,Urine Negative (Negative); Blood, Urine TRACE-I (Negative); Color,Urine YELLOW (Yellow); Glucose,Urine (UA) Negative (Negative); Ketones,Urine TRACE (Negative); Leukocyte Esterase,Urine TRACE (Negative); Nitrate,Urine Negative (Negative); PH,Urine 6.5 (5.0-8.5); Protein,Urine Negative (Negative); Specific Gravity, Urine <= 1.005 (1.005-1.030); Urobilinogen,Urine 0.2 EU/dl (0.2)
[2023-12-18 20:49] LABS: Fetal Membrane Rupture (Rapid) Negative (Negative)
[2023-12-18] MEDS: LACTATED RINGERS 1000ML 1,000 ML 999 ML IV ×2 (20:49→21:57)
[2023-12-18] MEDS: NIFEdipine 10MG CAPSULE 10 MG PO ×2 (20:49→21:41)
[2023-12-18 20:53] LABS: Amphetamine/Metha Screen,Urine Negative ng/ml (<1000); Barbiturates Screen,Urine Negative ng/ml (<200)
[2023-12-18 20:54] LABS: Benzodiazepines Screen,Urine Negative ng/ml (<200)
[2023-12-18 20:57] LABS: Cannabinoid Screen,Urine Negative ng/ml (<50)
[2023-12-18 20:58] LABS: Cocaine Screen,Urine Negative ng/ml (<300); Methadone Screen,Urine Negative ng/ml (<300)
[2023-12-18 20:59] LABS: Opiate Screen,Urine Negative ng/ml (<300)
[2023-12-18 21:00] LABS: Phencyclidine Screen,Urine Negative ng/ml (<25)
[2023-12-18 21:01] LABS: Bacteria,Urine 3+ /lpf; Squamous Epithelial Cell,Urine 20-50 #/hpf (0-5)
[2023-12-18 21:23] LABS: Fetal Fibronectin (Rapid) Negative (Negative)
[2023-12-18] MEDS: BUTORPHANOL TARTRATE 1 MG/ML VIAL IV (22:02)
[2023-12-18] MEDS: LACTATED RINGERS 1000ML 1,000 ML 125 ML IV (23:11)
--- NOTE | 2023-12-19 07:00 | US_ITS ---
PROCEDURE: US OB TRANSVAGINAL CLINICAL INDICATION: contractions COMPARISON: US US OB <= 14 WEEKS FETUS from 06/29/2023 US US OB /MATERNAL DETAIL from 09/14/2023 US US OB FOLLOW UP from 11/14/2023 FINDINGS: Transvaginal sonographic images of the cervix were obtained. From her established due date she is 32weeks 4days. The following parameters are obtained: Viable Fetus in the cephalic presentation. The cervix measures between 2.5 cm and 3.0 cm. IMPRESSION: 1. Fetus in the cephalic presentation. 2. The cervix is measured transvaginally between 2.5 cm and 3.0 cm in length. 3. There is no funneling of the cervix. 4. The high school football coach noted that there was softness of the cervix. Dictated by: Olegario Huitron MD 12/19/2023 11:35 Olegario Huitron MD in [place] 12/19/2023 11:35
--- NOTE | 2023-12-19 07:20 | HMH.PHAINT1 ---
Pharmacy Intervention Comments: MEDICATION RECONCILIATION COMPLETED ON PATIENT USING EXTERNAL FILL HISTORY FROM PHARMACY. -DAJUAN RIOS, [place]
--- NOTE | 2023-12-19 09:13 | EXP.HPDC ---
General Admission date:: 12/18/23 Discharge date: 12/19/23 *Admission Date: 12/18/23 *Chief complaint: labor *History of present illness: She is a 33-year-old 5 para 3 aborta 2 who is now 32 weeks gestational age. She was admitted with regular contractions. [facility] Disclaimer: The information contained in this section may have been updated after the patient was seen, as this information can be updated by other users. Medical History No significant past medical history Surgical History Hx of cholecystectomy History of appendectomy Family History Cancer Mother Social History Smoking Status: Current every day smoker tobacco type: cigarettes packs per day: 1 alcohol intake: never substance use type: denies use current occupational status: employed Travel in the last 8 weeks: None household members: spouse housing: house current occupation: [employer] current occupational exposures/hazards: No caffeine: Yes Review of Systems Review of Systems Review of systems:: pertinent systems reviewed and negative unless documented below Exam Data for Last 24 hours Vital signs and Labs for Last 24 Hours: Temp Pulse Resp BP Pulse Ox O2 Del Method 98.2 F 96 H 18 117/76 98 Room Air 12/18/23 20:33 12/18/23 20:33 12/18/23 20:33 12/18/23 20:33 12/18/23 20:33 12/18/23 20:33 Laboratory Results - last 24 hr 12/18/23 20:15: Urine Color Yellow, Urine Appearance Clear, Urine pH 6.5, Ur Specific [place] <= 1.005, Urine Protein Negative, Urine Glucose (UA) Negative, Urine Ketones Trace, Urine Blood Trace-i, Urine Nitrate Negative, Urine Bilirubin Negative, Urine Urobilinogen 0.2, Ur Leukocyte Esterase Trace, Urine RBC 3-5, Urine WBC 5-10, Ur Squamous Epith Cells 20-50, Urine Bacteria 3+, Membrane Rupture Negative, Urine Opiates Screen Negative, Urine Methadone Screen Negative, Ur Barbituates Screen Negative, Ur Phencyclidine Scrn Negative, Ur Amphetamines Screen Negative, U Benzodiazepines Scrn Negative, Urine Cocaine Screen Negative, U Marijuana (THC) Screen Negative 12/18/23 20:40: Fibronectin Negative I & O for Last 24 hours: Intake & Output 12/16/23 12/17/23 12/18/23 12/19/23 11:59 11:59 11:59 11:59 Weight 182 lb Constitutional Constitutional: no acute distress *Routine HEENT Exam Head: Present normocephalic Eye: Present EOMI and PERRL ENT: Present mucous membranes moist *Routine Neck Exam Neck: Present supple; Absent lymphadenopathy *Routine Respiratory Exam Respiratory: Present CTA bilaterally *Routine Cardiovascular Exam Cardiovascular: Present RRR *Routine Abdominal Exam Abdominal: Present soft and normoactive bowel sounds; Absent tenderness *Routine Rectal Exam Rectal:: deferred *Routine Genitalia Exam Genitalia:: deferred *Routine Extremities Exam Extremities: Absent cyanosis, clubbing or edema *Routine Skin Exam Skin: Present warm; Absent rash *Routine Neurological Exam Neurological: Present alert and oriented X3 Meds Home Medications and Allergies Home Medications ?Medication ?Instructions ?Recorded ?Confirmed ?Type PNV 153-FA 400 mcg-om3 35 mg-dha 1 tab PO DAILY 04/13/20 12/18/23 History 25 mg-epa 5 mg-fish oil chew tablet ( Gummies) ferrous sulfate 325 mg (65 mg 325 mg PO DAILY #30 tabs 12/05/23 12/18/23 Rx iron) tablet nifedipine 10 mg capsule 10 mg PO BID PRN contractions #60 12/19/23 Rx caps promethazine 12.5 mg tablet 12.5 mg PO Q4HP PRN nausea and 12/19/23 12/19/23 History vomiting New Prescriptions to Start Prescriptions: nifedipine Olegario Huitron Allergies Allergy/AdvReac Type Severity Reaction Status Date / Time ciprofloxacin [From CIPRO] Allergy Unknown Verified 12/05/23 09:52 hydrocodone [From LORTAB] Allergy Unknown PATIENT Verified 12/05/23 09:52 CAN TAKE PLAIN TYLENOL latex [LATEX] Allergy Unknown Verified 12/05/23 09:52 Hospital Course Hospital Course Hospital Course: She started on IV fluids and received 2 doses of nifedipine 10 mg. Her contractions have now settled overnight. She will also receive her first dose of steroids this morning and will return tomorrow for second dose. Her contractions have settled. The nonstress test is reactive. She had an ultrasound that showed the fetus in the cephalic presentation and the cervix was between 2.5 cm and 3 cm in length. There was no funneling of the cervix. She will be discharged home this morning to return tomorrow for repeat dose of steroids. She will follow-up with me in approximately 5 days time. She will continue at home on bedrest. She was given a prescription for nifedipine to take 10 mg up to 2 times daily for contractions. She will return if she has any regular contractions. Her condition on discharge is stable and improved. Results Data Completed and Pending Labs on day of discharge: Labs from last 24 hours 12/18/23 12/18/23 20:40 20:15 Urine Color Yellow Urine Appearance Clear Urine pH 6.5 Ur Specific [place] <= 1.005 Urine Protein Negative Urine Glucose (UA) Negative Urine Ketones Trace Urine Blood Trace-i Urine Nitrate Negative Urine Bilirubin Negative Urine Urobilinogen 0.2 Ur Leukocyte Esterase Trace Urine RBC 3-5 Urine WBC 5-10 Ur Squamous Epith Cells 20-50 Urine Bacteria 3+ Membrane Rupture Negative Urine Opiates Screen Negative Urine Methadone Screen Negative Ur Barbituates Screen Negative Ur Phencyclidine Scrn Negative Ur Amphetamines Screen Negative U Benzodiazepines Scrn Negative Urine Cocaine Screen Negative U Marijuana (THC) Screen Negative Fibronectin Negative DS: Diagnosis Discharge Diagnosis (1) False labor: Status: Acute Code(s): O47.9 - False labor, unspecified Discharge Plan Disposition Patient Disposition: Home, Self-Care Follow up Plan Prescriptions/Medication Reconciliation: New nifedipine 10 mg capsule 10 mg PO BID PRN (Reason: contractions) Qty: 60 1RF Continued Gummies 400 mcg-35 mg- 25 mg-5 mg tablet,chewable 1 tab PO DAILY ferrous sulfate 325 mg (65 mg iron) tablet 325 mg PO DAILY Qty: 30 2RF promethazine 12.5 mg tablet 12.5 mg PO Q4HP PRN (Reason: nausea and vomiting) Problem Reconciliation Problems Reviewed?: Yes Patient Discharge Instructions ACTIVITY: Limited activity and Bed rest DIET: continue same diet Print Language: Azeri Providers Primary Care Provider: Archana Schultz Admit Provider: Ashley Mendoza Attending Provider: Ashley Mendoza
[2023-12-19] MEDS: BETAMETHASONE ACET/PHOS 6MG/ML 5ML MDV 12 MG IM (09:59)
== END 2023-12-19 10:15 | disposition home or self-care (01) ==
LOC: OBOUT 21:26 → OB 21:26
PROVIDERS: Admitting Provider Obstetrics & Gynecology; PCP Nurse Practitioner; Visit Provider Obstetrics & Gynecology
DX: O60.03 Preterm labor without delivery, third trimester (principal); Z3A.32 32 weeks gestation of pregnancy; O99.333 Smoking (tobacco) complicating pregnancy, third trimester; F17.210 Nicotine dependence, cigarettes, uncomplicated
CPT/HCPCS: 76817; 80307; 81001; 82731; 84112; 87086; G0378; J0595; J0702; J7120

== ENCOUNTER 2023-12-20 09:48 | Outpatient (CLI) | payer OTHER, SELFPAY ==
[2023-12-20] MEDS: BETAMETHASONE ACET/PHOS 6MG/ML 5ML MDV 12 MG IM (10:37)
== END 2023-12-20 11:04 | disposition home or self-care (01) ==
LOC: OBOUT 09:49 → OB 09:50
PROVIDERS: PCP Nurse Practitioner; Visit Provider Obstetrics & Gynecology
DX: O36.8130 Decreased fetal movements, third trimester, not applicable or unspecified (principal); Z3A.32 32 weeks gestation of pregnancy
CPT/HCPCS: G0463; J0702

== ENCOUNTER 2023-12-28 11:25 | Outpatient (CLI) | payer OTHER, SELFPAY ==
[2023-12-28 12:35] LABS: Anion Gap 11.2 mEq/L (5-15); Blood Urea Nitrogen 7 mg/dl (7-17); Calcium 9.6 mg/dl (8.4-10.2); Carbon Dioxide 26 mmol/L (22.0-30.0); Chloride 103 mmol/L (98-107); Estimated Glomerular Filt Rate 142 ml/min (>60); GFR (African American) 172 ML/MIN (>60); Glucose 80 mg/dl (74-100); Potassium 4.2 mmoL/L (3.5-5.1); Sodium 136 mmol/L (136-145)
== END 2023-12-28 23:59 | disposition home or self-care (01) ==
LOC: LAB 11:26
PROVIDERS: Visit Provider Nurse Practitioner
DX: R07.89 Other chest pain (principal); R06.00 Dyspnea, unspecified; K21.9 Gastro-esophageal reflux disease without esophagitis; R94.31 Abnormal electrocardiogram [ECG] [EKG]; Z3A.33 33 weeks gestation of pregnancy
CPT/HCPCS: 36415; 80048

== ENCOUNTER 2023-12-29 11:02 | Outpatient (CLI) | payer OTHER, SELFPAY ==
--- NOTE | 2023-12-29 11:02 | CA_ITS ---
APPROVED REPORT EXAM: Comprehensive 2D, Doppler, and color-flow Echocardiogram Online Marketing Coordinator: Helen Madrigal RT(R) Ht: 5 ft 5 in Wt: 181lbs BSA: 1.90 BP: 114/56 mmHg Indications: 34 weeks , SOB, gestational edema, chest heaviness, fatigue, SOB. 2D Dimensions Left Atrium 3.16 cm F: 2.7 - 3.8 LVEF (Webb's) 53.30 % F: 54 - 74 LVOT 1.77 cm (M/F) 1.5-2.5 LV Volume 98.30 mL F: 46 - 106 LV Volume Index 51.7 mL/m2 F: 29 - 61 LA Volume 17.50 mL LA Volume Index 9.21 mL/m2 (M/F) 16-34 EF AP4 54.20 % EF AP2 55.1 % EF BP 53.3 % GL Strain -21.9 % M-Mode Dimensions RVDd 2.55 cm (0.9-2.6) LVDd 4.46 cm (3.5-5.7) Ao Diam 2.15 cm (2.0-3.7) LVDs 3.29 cm (3.5-5.7) IVSd 0.70 cm (0.6-1.1) PWd 0.80 cm (0.6-1.1) EF (Teich) 51.60% FS 26.20% EDV (Teich) 90.50 mL ESV (Teich) 43.80 mL LV Diastology E Decel Time 181 (160-240 msec) E/A Ratio 1.3 MED E' 13.7 (>= 7 cm/sec) E'/MED E' Ratio 7.69 (<= 14) LAT E' 18.7 (>= 10 cm/sec) E/LAT E' Ratio 5.63 (<= 14) Mitral Valve MV E Max Dylan. 105.0 (40-130 cm/s) MV A Velocity 84.0 (40-130 cm/s) E/A Ratio 1.25 MV Decel. Time 181 (160-240 ms) Tricuspid Valve TR P. Velocity 235.00 cm/s RAP Estimate 10.00 mmHg RVSP 32.10 mmHg Left Ventricle The left ventricle is normal size. The left ventricular systolic function is normal. The left ventricular ejection fraction is within the normal range. There is normal left ventricular wall thickness. There is normal LV segmental wall motion. The left ventricular diastolic function is normal. LVEF is 55%. Right Ventricle The right ventricle is normal size. The right ventricular systolic function is normal. Atria The left atrium size is normal. The right atrium size is normal. There is no color Doppler evidence of interatrial shunt. Aortic Valve The aortic valve is normal in structure. The aortic valve is trileaflet. There is no aortic valvular stenosis. No aortic regurgitation is present. Mitral Valve The mitral valve is normal in structure. No evidence of mitral valve stenosis. Trace mitral regurgitation. Tricuspid Valve Tricuspid valve is grossly normal in structure and function. Trace tricuspid regurgitation. RVSP is normal. Pulmonic Valve The pulmonary valve is normal in structure. Trace pulmonic regurgitation. Great Vessels The aortic root is normal in size. The ascending aorta is normal in size. IVC is normal in size and collapses >50% with inspiration. Pericardium There is no pericardial effusion. Other Information Study Quality: Adequate Conclusion Normal biventricular systolic function. No significant valvular stenosis or regurgitation. Electronically signed by : Renu Case MD 01/03/2024 11:57:03
== END 2023-12-29 23:59 | disposition home or self-care (01) ==
LOC: RT 11:02
PROVIDERS: PCP Nurse Practitioner; Visit Provider Nurse Practitioner
DX: R07.89 Other chest pain (principal); R06.00 Dyspnea, unspecified; R94.31 Abnormal electrocardiogram [ECG] [EKG]; Z3A.33 33 weeks gestation of pregnancy
CPT/HCPCS: 93306

== ENCOUNTER 2024-01-05 12:48 | Outpatient (CLI) | payer OTHER, SELFPAY ==
--- NOTE | 2024-01-05 12:48 | US_ITS ---
PROCEDURE: US OB BIOPHYSICAL PROFILE CLINICAL INDICATION: pre-term labor, sga COMPARISON: No exams were available for comparison FINDINGS: Transabdominal sonographic images of the uterus were obtained. From her established due date she is 35weeks 0 days. The following parameters are obtained: Viable Fetus in the cephalic presentation with a right lateral placenta grade 2. Average ultrasound age is 35weeks 4days Estimated weight 2,614g, 5 lb 12 oz. Cervix measures 3.4 cm. Measurements: heart Rate = 156bpm BPD = 36weeks 2days, 83 percentile HC = 35weeks 3days, 23 percentile AC = 35weeks 0 days, 56 percentile FL = 35weeks 2days, 42 percentile HC/AC is 1.01 BPD is 0.77 FL/AC is 0.22 52 percentile Amniotic fluid index: 17.58cm, MVP 6.57 cm. Qualitative AFV:2 Breathing movements: 2 Gross Body Movements: 2 Tone: 2 Biophysical profile score: 8 Doppler evaluation of the umbilical artery: SD ratio: 2.61-3.91 Resistive index: 0.62 No obvious anomalies evident.Kidneys, profile, bladder, stomach, four-chamber heart, three-vessel cord appear normal. IMPRESSION: 1. Viable fetus in cephalic presentation with a right lateral placenta grade 2. 2. Fluid is within normal limits with the amniotic fluid index 17.58 cm, MVP 6.57 cm. 3. Biophysical profile 12/13 with good breathing movement seen and movement seen. 4. SD ratio appears upper limits of normal. 5. There has been good interval growth with the fetus currently 52nd percentile. 6. Limited anatomical scan appears normal. Dictated by: Olegario Huitron MD 01/05/2024 17:16 Olegario Huitron MD in [place] 01/05/2024 17:16
== END 2024-01-05 23:59 | disposition home or self-care (01) ==
LOC: RAD 12:48
PROVIDERS: PCP Nurse Practitioner; Visit Provider Nurse Practitioner Obstetrics & Gynecology
DX: O36.5990 Maternal care for other known or suspected poor fetal growth, unspecified trimester, not applicable or unspecified (principal); O09.219 Supervision of pregnancy with history of pre-term labor, unspecified trimester
CPT/HCPCS: 76816; 76819; 76820

== ENCOUNTER 2024-01-17 20:22 | Outpatient (CLI) | payer OTHER, SELFPAY ==
[2024-01-17 11:51] LABS: Fetal Membrane Rupture (Rapid) Negative (Negative)
[2024-01-17 20:30] VITALS: BMI 30.9
[2024-01-17 20:49] LABS: Microscopic, Urine URINE MICROSCOPIC (MICROSCOPIC)
[2024-01-17 20:54] VITALS: BP 134/73; PULSE 85; RESP 18; TEMP 36.6; O2SAT 98; BMI 30.9
[2024-01-17 21:05] LABS: Appearance,Urine CLEAR (Clear); Bilirubin,Urine Negative (Negative); Blood, Urine Negative (Negative); Color,Urine YELLOW (Yellow); Glucose,Urine (UA) Negative (Negative); Ketones,Urine Negative (Negative); Leukocyte Esterase,Urine Negative (Negative); Nitrate,Urine Negative (Negative); Protein,Urine Negative (Negative); Specific Gravity, Urine >= 1.030 (1.005-1.030)
[2024-01-17 21:18] LABS: Bacteria,Urine 1+ /lpf; Mucus,Urine 2+ /lpf
[2024-01-17 21:19] LABS: Barbiturates Screen,Urine Negative ng/ml (<200); Benzodiazepines Screen,Urine Negative ng/ml (<200)
[2024-01-17 21:20] LABS: Amphetamine/Metha Screen,Urine Negative ng/ml (<1000)
[2024-01-17 21:21] LABS: Cannabinoid Screen,Urine Negative ng/ml (<50); Methadone Screen,Urine Negative ng/ml (<300)
[2024-01-17 21:22] LABS: Cocaine Screen,Urine Negative ng/ml (<300)
[2024-01-17 21:23] LABS: Opiate Screen,Urine Negative ng/ml (<300)
[2024-01-17 21:24] LABS: Phencyclidine Screen,Urine Negative ng/ml (<25)
== END 2024-01-17 21:15 | disposition home or self-care (01) ==
LOC: OBOUT 20:24 → OB 20:25
PROVIDERS: PCP Obstetrics & Gynecology; Visit Provider Obstetrics & Gynecology
DX: O47.03 False labor before 37 completed weeks of gestation, third trimester (principal); Z3A.36 36 weeks gestation of pregnancy
CPT/HCPCS: 80307; 81001; 84112; 86403; G0463

== ENCOUNTER 2024-01-22 00:21 | Observation (INO) | payer OTHER, SELFPAY ==
[2024-01-21 20:50] VITALS: BMI 30.9
[2024-01-21 20:56] VITALS: BP 147/90; PULSE 73; RESP 18; TEMP 36.8; O2SAT 99; BMI 30.9
[2024-01-21 21:20] VITALS: BP 128/84
[2024-01-21] MEDS: ACETAMINOPHEN 500MG TAB 1000 MG PO (22:20)
[2024-01-21 22:21] LABS: Microscopic, Urine URINE MICROSCOPIC (MICROSCOPIC)
[2024-01-21 22:22] LABS: Appearance,Urine CLEAR (Clear); Bilirubin,Urine Negative (Negative); Blood, Urine Negative (Negative); Color,Urine YELLOW (Yellow); Glucose,Urine (UA) Negative (Negative); Ketones,Urine Negative (Negative); Leukocyte Esterase,Urine TRACE (Negative); Nitrate,Urine Negative (Negative); Protein,Urine Negative (Negative); Specific Gravity, Urine 1.025 (1.005-1.030); Urobilinogen,Urine 0.2 EU/dl (0.2)
[2024-01-21 22:33] LABS: Barbiturates Screen,Urine Negative ng/ml (<200); Benzodiazepines Screen,Urine Negative ng/ml (<200)
[2024-01-21 22:34] LABS: Amphetamine/Metha Screen,Urine Negative ng/ml (<1000)
[2024-01-21 22:35] LABS: Cannabinoid Screen,Urine Negative ng/ml (<50); Cocaine Screen,Urine Negative ng/ml (<300)
[2024-01-21 22:36] LABS: Methadone Screen,Urine Negative ng/ml (<300); Opiate Screen,Urine Negative ng/ml (<300)
[2024-01-21 22:37] LABS: Phencyclidine Screen,Urine Negative ng/ml (<25)
[2024-01-21 22:59] LABS: Bacteria,Urine 1+ /lpf
[2024-01-22 00:02] VITALS: BP 131/69
[2024-01-22] MEDS: diphenhydrAMINE 25MG CAPSULE 25 MG PO (00:29)
[2024-01-22 05:14] VITALS: BP 114/55; PULSE 67; RESP 16; TEMP 36.4; O2SAT 100
--- NOTE | 2024-01-22 08:26 | EXP.HPDC ---
General Admission date:: 01/22/24 Discharge date: 01/22/24 *Admission Date: 01/22/24 *Chief complaint: Contractions, back pain, decreased movement *History of present illness: Jennifer is a 33 yo at 37w3d admitted to [facility] for observation secondary to back pain, contractions and decreased movement. Cervical exam on arrival was 2.5/70/-1 at 2100 01/21/24. Repeat cervical exam at 0000 was 3/70/-1. She was monitored overnight. No vaginal bleeding or leakage of fluid. This morning she reports baby is moving. She is still having some back pain. [facility] Disclaimer: The information contained in this section may have been updated after the patient was seen, as this information can be updated by other users. Medical History (Updated 01/22/24 @ 08:35 by Ashley Mendoza DO) Back pain Irregular contractions 37 weeks gestation of Normal delivery SOB (shortness of breath) on exertion Hypotension Palpitations No significant past medical history Surgical History Hx of cholecystectomy History of appendectomy Family History Mother Cancer Aunt on mothers side had breast cancer Social History Smoking Status: Current every day smoker tobacco type: cigarettes packs per day: 1 alcohol intake: never substance use type: denies use current occupational status: employed Travel in the last 8 weeks: None household members: spouse housing: house current occupation: [employer] current occupational exposures/hazards: No caffeine: Yes Review of Systems Review of Systems Review of systems:: pertinent systems reviewed and negative unless documented below *Genitourinary Comments: + contractions *Musculoskeletal Comments: + back pain Exam Data for Last 24 hours Vital signs and Labs for Last 24 Hours: Temp Pulse Resp BP Pulse Ox O2 Del Method 97.5 F L 67 16 114/55 L 100 Room Air 01/22/24 05:14 01/22/24 05:14 01/22/24 05:14 01/22/24 05:14 01/22/24 05:14 01/22/24 05:14 Laboratory Results - last 24 hr 01/21/24 20:50: Urine Color Yellow, Urine Appearance Clear, Urine pH 7.0, Ur Specific [place] 1.025, Urine Protein Negative, Urine Glucose (UA) Negative, Urine Ketones Negative, Urine Blood Negative, Urine Nitrate Negative, Urine Bilirubin Negative, Urine Urobilinogen 0.2, Ur Leukocyte Esterase Trace, Urine WBC 5-10, Ur Squamous Epith Cells 10-20, Urine Bacteria 1+, Urine Opiates Screen Negative, Urine Methadone Screen Negative, Ur Barbituates Screen Negative, Ur Phencyclidine Scrn Negative, Ur Amphetamines Screen Negative, U Benzodiazepines Scrn Negative, Urine Cocaine Screen Negative, U Marijuana (THC) Screen Negative I & O for Last 24 hours: Intake & Output 01/19/24 01/20/24 01/21/24 01/22/24 23:59 23:59 23:59 23:59 Weight 186 lb Constitutional Constitutional: no acute distress and cooperative *Routine HEENT Exam Head: Present normocephalic and atraumatic Eye: Absent conjunctivae pink ENT: Present mucous membranes moist *Routine Neck Exam Neck: Present full ROM *Routine Respiratory Exam Respiratory: Present CTA bilaterally and normal respiratory effort *Routine Cardiovascular Exam Cardiovascular: Present RRR *Routine Abdominal Exam Abdominal: Present soft (Gravid); Absent tenderness *Routine Rectal Exam Rectal:: deferred *Routine Genitalia Exam Genitalia:: normal female *Routine Extremities Exam Extremities: Present full ROM; Absent edema or calf tenderness *Routine Neurological Exam Neurological: Present alert, moving all extremities and normal speech Routine Psychiatric Exam Psychiatric: Present normal affect and cooperative Meds Home Medications and Allergies Home Medications ?Medication ?Instructions ?Recorded ?Confirmed ?Type PNV 153-FA 400 mcg-om3 35 mg-dha 1 tab PO DAILY 04/13/20 01/17/24 History 25 mg-epa 5 mg-fish oil chew tablet ( Gummies) ferrous sulfate 325 mg (65 mg 325 mg PO DAILY #30 tabs 12/05/23 01/17/24 Rx iron) tablet promethazine 12.5 mg tablet 12.5 mg PO Q4HP PRN nausea and 12/19/23 01/17/24 History vomiting New Prescriptions to Start Prescriptions: Allergies Allergy/AdvReac Type Severity Reaction Status Date / Time ciprofloxacin [From CIPRO] Allergy Unknown Verified 01/17/24 09:52 hydrocodone [From LORTAB] Allergy Unknown PATIENT Verified 01/17/24 09:52 CAN TAKE PLAIN TYLENOL latex [LATEX] Allergy Unknown Verified 01/17/24 09:52 Hospital Course Hospital Course Hospital Course: Jennifer is a 33 yo at 37w3d admitted to [facility] for observation secondary to back pain, contractions and decreased movement. Cervical exam on arrival was 2.5/70/-1 at 2100 01/21/24. Repeat cervical exam at 0000 was 3/70/-1. She was monitored overnight. No vaginal bleeding or leakage of fluid. NST was category 1, reactive. This morning she reports baby is moving. She is still having some back pain. No contractions on toco. Cervical exam unchanged, 3/70/-1. She was discharged home with instructions to follow-up in the office as scheduled 01/24/24. Results Data Completed and Pending Labs on day of discharge: Labs from last 24 hours 01/21/24 20:50 Urine Color Yellow Urine Appearance Clear Urine pH 7.0 Ur Specific [place] 1.025 Urine Protein Negative Urine Glucose (UA) Negative Urine Ketones Negative Urine Blood Negative Urine Nitrate Negative Urine Bilirubin Negative Urine Urobilinogen 0.2 Ur Leukocyte Esterase Trace Urine WBC 5-10 Ur Squamous Epith Cells 10-20 Urine Bacteria 1+ Urine Opiates Screen Negative Urine Methadone Screen Negative Ur Barbituates Screen Negative Ur Phencyclidine Scrn Negative Ur Amphetamines Screen Negative U Benzodiazepines Scrn Negative Urine Cocaine Screen Negative U Marijuana (THC) Screen Negative DS: Diagnosis Discharge Diagnosis (1) 37 weeks gestation of : Status: Acute Code(s): Z3A.37 - 37 weeks gestation of (2) Irregular contractions: Status: Acute Code(s): O47.9 - False labor, unspecified (3) Back pain: Status: Acute Code(s): M54.9 - Dorsalgia, unspecified Discharge Plan Disposition Patient Disposition: Home, Self-Care Condition: Good Follow up Plan Follow up with: Ashley Mendoza DO [Staff Physician] - 2 days (as scheduled) Prescriptions/Medication Reconciliation: Continued Gummies 400 mcg-35 mg- 25 mg-5 mg tablet,chewable 1 tab PO DAILY ferrous sulfate 325 mg (65 mg iron) tablet 325 mg PO DAILY Qty: 30 2RF promethazine 12.5 mg tablet 12.5 mg PO Q4HP PRN (Reason: nausea and vomiting) Discontinued nifedipine 10 mg capsule 10 mg PO BID PRN (Reason: contractions) Qty: 60 1RF Problem Reconciliation Problems Reviewed?: Yes Patient Discharge Instructions ACTIVITY: Limited activity DIET: continue same diet and regular diet Additional Instructions: Rest, Drink plenty of fluids, keep previously scheduled appointment. Patient Instructions: DI for False Labor, Antepartum Care Print Language: Citizen Of [place] Providers Primary Care Provider: Archana Schultz Admit Provider: Latricia Banks Attending Provider: Latricia Banks
[2024-01-22 08:41] VITALS: BP 115/56; PULSE 70; RESP 16; TEMP 36.7; O2SAT 98
== END 2024-01-22 09:00 | disposition home or self-care (01) ==
LOC: OBOUT 00:21 → OB 00:21
PROVIDERS: Admitting Provider Obstetrics & Gynecology; PCP Nurse Practitioner; Visit Provider Obstetrics & Gynecology
DX: O36.8130 Decreased fetal movements, third trimester, not applicable or unspecified (principal); O47.1 False labor at or after 37 completed weeks of gestation; O99.333 Smoking (tobacco) complicating pregnancy, third trimester; F17.210 Nicotine dependence, cigarettes, uncomplicated; M54.89 Other dorsalgia; Z3A.37 37 weeks gestation of pregnancy
CPT/HCPCS: 59025; 80307; 81001; G0378

== ENCOUNTER 2024-01-28 14:14 | Inpatient (IN) | payer OTHER, SELFPAY ==
[2024-01-28 14:00] VITALS: BP 135/85; PULSE 79; RESP 17; TEMP 36.7; O2SAT 98
[2024-01-28] MEDS: DEXTROSE 5%-LACTATED RINGERS 1,000 ML 125 ML IV (14:40)
[2024-01-28] MEDS: OXYTOCIN/RINGERS LACTATE 30 UNITS/500 ML BAG 40 UNITS IV (15:41)
[2024-01-28 16:08] VITALS: BMI 30.9
[2024-01-28] MEDS: ACETAMINOPHEN 500MG TAB 1000 MG PO ×2 (16:13→21:57)
[2024-01-28] MEDS: IBUPROFEN 400 MG TABLET 800 MG PO (16:13)
[2024-01-28] MEDS: BENZOCAINE-MENTHOL SPRAY 56GM CAN TP (16:13)
[2024-01-28 16:21] LABS: Microscopic, Urine URINE MICROSCOPIC (MICROSCOPIC)
[2024-01-28 16:24] LABS: Barbiturates Screen,Urine Negative ng/ml (<200); Opiate Screen,Urine Negative ng/ml (<300); Phencyclidine Screen,Urine Negative ng/ml (<25)
[2024-01-28 16:25] LABS: Amphetamine/Metha Screen,Urine Negative ng/ml (<1000); Bacteria,Urine Trace /lpf; Benzodiazepines Screen,Urine Negative ng/ml (<200); Cannabinoid Screen,Urine Negative ng/ml (<50); Cocaine Screen,Urine Negative ng/ml (<300); Methadone Screen,Urine Negative ng/ml (<300); RBC,Urine Occasional #/hpf (0-3)
[2024-01-28 16:26] LABS: Glucose,Urine (UA) Negative (Negative); Ketones,Urine Negative (Negative); Protein,Urine Negative (Negative); Specific Gravity, Urine 1.025 (1.005-1.030)
[2024-01-28 16:27] LABS: Appearance,Urine Clear (Clear); Bilirubin,Urine Negative (Negative); Blood, Urine Negative (Negative); Color,Urine Yellow (Yellow); Leukocyte Esterase,Urine Negative (Negative); Nitrate,Urine Negative (Negative); PH,Urine 6.5 (5.0-8.5); Urobilinogen,Urine 0.2 EU/dl (0.2)
--- NOTE | 2024-01-28 16:31 | EXP.HP ---
History of Present Illness *Reason for visit:: Labor *History of present illness: Jennifer Lubin is a 33-year-old at 38 weeks and 2 days gestation who presented to labor and delivery with regular painful contractions. Her has been uncomplicated. On presentation patient endorsed good movement and denies any leakage of fluid or vaginal bleeding. O+, antibody negative, rubella immune, hepatitis B negative, hepatitis C negative, RPR negative, HIV negative 1 hour GTT: 116 GBS negative PFSH PFS Disclaimer: The information contained in this section may have been updated after the patient was seen, as this information can be updated by other users. Medical History Back pain Irregular contractions 37 weeks gestation of Normal delivery SOB (shortness of breath) on exertion Hypotension Palpitations No significant past medical history Surgical History Hx of cholecystectomy History of appendectomy Family History Mother Cancer Aunt on mothers side had breast cancer Social History Smoking Status: Current every day smoker tobacco type: cigarettes packs per day: 1 alcohol intake: never substance use type: denies use current occupational status: employed Travel in the last 8 weeks: None household members: spouse housing: house current occupation: [employer] current occupational exposures/hazards: No caffeine: Yes Review of Systems Review of Systems Review of systems (narrative): Review of Systems Constitutional: Denies fever, chills, and sweats Eyes: Denies vision change/ pain Respiratory: Denies cough and shortness of breath Cardiovascular: Denies chest pain and lightheadedness Gastrointestinal: Admits abdominal pain with contractions. Denies nausea, vomiting. Genitourinary: Denies dysuria and incontinence Musculoskeletal: Denies shoulder pain and back pain Neurological: Denies change in speech or headaches Meds Home Medications and Allergies Home Medications ?Medication ?Instructions ?Recorded ?Confirmed ?Type PNV 153-FA 400 mcg-om3 35 mg-dha 1 tab PO DAILY 04/13/20 01/17/24 History 25 mg-epa 5 mg-fish oil chew tablet ( Gummies) ferrous sulfate 325 mg (65 mg 325 mg PO DAILY #30 tabs 12/05/23 01/24/24 Rx iron) tablet promethazine 12.5 mg tablet 12.5 mg PO Q4HP PRN nausea and 12/19/23 01/24/24 History vomiting New Prescriptions to Start Prescriptions: Allergies Allergy/AdvReac Type Severity Reaction Status Date / Time ciprofloxacin [From CIPRO] Allergy Unknown Verified 01/24/24 09:04 hydrocodone [From LORTAB] Allergy Unknown PATIENT Verified 01/24/24 09:04 CAN TAKE PLAIN TYLENOL latex [LATEX] Allergy Unknown Verified 01/24/24 09:04 Exam Data for Last 24 hours Vital signs and Labs for Last 24 Hours: Laboratory Results - last 24 hr 01/28/24 14:50: Urine Color Yellow, Urine Appearance Clear, Urine pH 6.5, Ur Specific [place] 1.025, Urine Protein Negative, Urine Glucose (UA) Negative, Urine Ketones Negative, Urine Blood Negative, Urine Nitrate Negative, Urine Bilirubin Negative, Urine Urobilinogen 0.2, Ur Leukocyte Esterase Negative, Urine RBC Occasional, Urine WBC None, Ur Squamous Epith Cells 3-5, Urine Bacteria Trace, Urine Opiates Screen Negative, Urine Methadone Screen Negative, Ur Barbituates Screen Negative, Ur Phencyclidine Scrn Negative, Ur Amphetamines Screen Negative, U Benzodiazepines Scrn Negative, Urine Cocaine Screen Negative, U Marijuana (THC) Screen Negative I & O for Last 24 hours: Intake & Output 01/25/24 01/26/24 01/27/24 01/28/24 23:59 23:59 23:59 23:59 Weight 186 lb Narrative: General: patient is alert oriented in no acute distress and responds appropriately to questions. HEENT: NCAT, EOMI, moist mucous membranes, neck supple with full ROM Cardiovascular: RRR +S1/S2, no murmurs or rubs Pulmonary: Clear to auscultation bilaterally, nonlabored breathing, symmetric chest rise Abdominal: Gravid abdomen appropriate for gestation. No guarding, rebound, or tenderness noted. Extremities: trace edema, no tenderness or cyanosis noted Skin: Normal turgor, intact, warm. Negative for erythema, pallor, petechia, or lesions Neurologic: Negative for sensory or motor deficit Psychiatric: Normal affect, normal thought process, good judgment and insight, no depression or anxious mood appreciated. *Routine HEENT Exam Head: Present normocephalic and atraumatic Eye: Present EOMI, PERRL and normal accommodation; Absent conjunctival icterus, scleral injection, nystagmus or exophthalmos ENT: Present mucous membranes moist *Routine Respiratory Exam Respiratory: Present CTA bilaterally, normal respiratory effort, able to speak in complete sentences and symmetric chest movement; Absent accessory muscle use, decreased breath sounds, rales, respiratory distress, wheezes, distant breath sounds or diminished air movement *Routine Cardiovascular Exam Cardiovascular: Present RRR, Normal S1 and Normal S2; Absent murmur or gallop *Routine Abdominal Exam Abdominal: Present soft and normoactive bowel sounds; Absent tenderness, distended, rebound or guarding *Routine Rectal Exam Rectal:: deferred *Routine Genitalia Exam Genitalia:: normal female Assessment and Plan *Assessment and plan (1) 38 weeks gestation of : Status: Acute Category: Medical Code(s): Z3A.38 - 38 weeks gestation of (2) Active labor: Status: Acute Category: Medical Plan - Monitor vitals - Admit to L&D for labor monitoring and delivery - External FHR and TOCO monitor - Exam on admission: 5cm with a bulging bag of water - GBS neg/ Blood type: O+ - Hemoglobin: 10.8, Plt: 392 - Declines regional anesthesia - Anticipate vaginal delivery of female infant
--- NOTE | 2024-01-28 16:40 | EXP.DN ---
Delivery Note Delivery Date:: 01/28/24 Delivery Time:: 15:39 Was labor medically induced?: No Induction method: none Gestational age (weeks): 38 delivered prior to 39 weeks?: No Justification for early elective delivery:: Active Labor Gender: Female (Caridad) at 1 minute: 8 at 5 minutes: 9 Delivery Procedure:: Preoperative diagnosis: 1. at 38 completed this weeks gestation, vertex 2. Rh positive 3. GBS negative 4. Active Labor Postoperative diagnosis: 1. at 38 completed this weeks gestation, vertex 2. Rh positive 3. GBS negative 4. Active Labor EBL: 50mL Specimen: 1. Cord blood Findings: 1. Liveborn viable female : Car[place]. Apgars 8/9 at 1 and 5 minutes respectively. Weight 6lb 6oz Complications: None Procedure: Nonoperative spontaneous vaginal delivery Jennifer presented to labor and delivery today with regular painful contractions. Contractions were noted to be every 3 to 5 minutes. On arrival she was noted to be 5 cm and quickly progressed to complete. I was called by RN for delivery. At arrival she had a bulging bag of water which was ruptured, revealing clear fluid. She delivered almost immediately after that. There was no nuchal cord. The anterior right shoulder delivered, followed by the posterior shoulder without dystocia. The body and lower extremities delivered without difficulty. The was bulb suctioned and was crying immediately following delivery. The infant was placed on the maternal abdomen and greater than one minute was appreciated for delayed cord clamping. The umbilical cord was doubly clamped and cut. Cord blood was collected and sent for routine testing. The placenta delivered with cord traction and suprapubic contertraction. Pitocin was started. The uterus was firm and bleeding was minimal. The perineum, vaginal ramirez, cervix, and paraurethral area were inspected thoroughly and noted to be free of laceration. This concluded the delivery. The patient was counseled regarding the events of the delivery. The patient tolerated the delivery well. All counts were correct by nursing. Mother and infant were doing well and bonding upon my leaving the delivery room. Laceration:: vaginal Placental Delivery Description: Spontaneous
[2024-01-28 17:42] LABS: Basophils % 0.4 % (0.1-2.0); Eosinophils % 0.3 % (0.1-12.0); Hematocrit 33.6 % (37.0-47.0); Hemoglobin 10.8 g/dL (12.2-16.2); Lymphocytes # 1.8 K/mm3 (0.7-4.5); Lymphocytes % 18.4 % (10-50); Mean Corpuscular HGB Conc 32.2 g/dL (31.8-35.4); Mean Corpuscular Hemoglobin 26.2 pg (27.0-31.2); Mean Corpuscular Volume 81.5 fl (81-99); Mean Platelet Volume 8.5 fl (7.4-10.4); Monocytes # 0.6 K/mm3 (0.1-1.0); Monocytes % 5.6 % (1.7-9.3); Neutrophils # 7.5 K/mm3 (1.8-7.8); Neutrophils % 75.3 % (37.0-80.0); Platelet Count 409 K/mm3 (142-424); Red Blood Count 4.13 M/mm3 (4.20-5.40); Red Cell Distribution Width 17.1 % (11.5-17.5)
[2024-01-28 18:16] VITALS: BP 135/85; PULSE 79; RESP 17; TEMP 36.7; O2SAT 98; BMI 30.9
[2024-01-29] MEDS: IBUPROFEN 400 MG TABLET 800 MG PO ×3 (03:28→20:05)
[2024-01-29] MEDS: ACETAMINOPHEN 500MG TAB 1000 MG PO ×3 (03:29→16:28)
[2024-01-29 07:04] LABS: Basophils % 0.4 % (0.1-2.0); Eosinophils # 0.2 K/mm3 (0.0-0.4); Eosinophils % 1.6 % (0.1-12.0); Hematocrit 29.1 % (37.0-47.0); Lymphocytes # 2.5 K/mm3 (0.7-4.5); Mean Corpuscular HGB Conc 32.1 g/dL (31.8-35.4); Mean Corpuscular Hemoglobin 26.1 pg (27.0-31.2); Mean Corpuscular Volume 81.1 fl (81-99); Mean Platelet Volume 8.9 fl (7.4-10.4); Monocytes # 0.5 K/mm3 (0.1-1.0); Monocytes % 4.8 % (1.7-9.3); Neutrophils # 6.5 K/mm3 (1.8-7.8); Neutrophils % 67.2 % (37.0-80.0); Platelet Count 385 K/mm3 (142-424); Red Blood Count 3.59 M/mm3 (4.20-5.40); White Blood Count 9.7 K/mm3 (4.8-10.8)
[2024-01-29 07:49] LABS: Hemoglobin 9.3 g/dL (12.2-16.2)
[2024-01-29 08:41] VITALS: BP 123/66; PULSE 71; RESP 16; TEMP 36.8; O2SAT 99
--- NOTE | 2024-01-29 08:53 | HMH.PHAINT1 ---
Pharmacy Intervention Comments: MEDICATION RECONCILIATION COMPLETED ON PATIENT USING EXTERNAL FILL HISTORY FROM PHARMACY. -DAJUAN RIOS, [place]
--- NOTE | 2024-01-29 09:14 | EXP.ACUTE.PN ---
Subjective *Date: 01/29/24 *Time: 09:14 Interval history: She is doing well. She is eating and drinking and ambulating. She is breast-feeding. Her lochia is normal. Medical Exam Vital signs and Labs for Last 24 Hours: Vital Signs Temp Pulse Resp BP Pulse Ox O2 Del Method 01/29/24 08:41 98.3 F 71 16 123/66 99 Room Air 01/28/24 18:16 98.0 F 79 17 135/85 98 Room Air 01/28/24 14:00 98.0 F 79 17 135/85 98 Room Air Intake and Output 01/28/24 01/29/24 01/29/24 19:59 03:59 11:59 Other: Weight 186 lb Patient Weight 01/29/24 11:59 Weight 186 lb Laboratory Results - last 24 hr 01/28/24 14:50: WBC 10.0, RBC 4.13 L, Hgb 10.8 L, Hct 33.6 L, MCV 81.5, MCH 26.2 L, MCHC 32.2, RDW 17.1, Plt Count 409, MPV 8.5, Neut % (Auto) 75.3, Lymph % (Auto) 18.4, [place] % (Auto) 5.6, Eos % (Auto) 0.3, Baso % (Auto) 0.4, Neut # (Auto) 7.5, Lymph # (Auto) 1.8, [place] # (Auto) 0.6, Eos # (Auto) 0.0, Baso # (Auto) 0.0, Urine Color Yellow, Urine Appearance Clear, Urine pH 6.5, Ur Specific [place] 1.025, Urine Protein Negative, Urine Glucose (UA) Negative, Urine Ketones Negative, Urine Blood Negative, Urine Nitrate Negative, Urine Bilirubin Negative, Urine Urobilinogen 0.2, Ur Leukocyte Esterase Negative, Urine RBC Occasional, Urine WBC None, Ur Squamous Epith Cells 3-5, Urine Bacteria Trace, Urine Opiates Screen Negative, Urine Methadone Screen Negative, Ur Barbituates Screen Negative, Ur Phencyclidine Scrn Negative, Ur Amphetamines Screen Negative, U Benzodiazepines Scrn Negative, Urine Cocaine Screen Negative, U Marijuana (THC) Screen Negative, Blood Type O Positive, Antibody Screen Negative 01/29/24 06:39: WBC 9.7, RBC 3.59 L, Hgb 9.3 L D, Hct 29.1 L, MCV 81.1, MCH 26.1 L, MCHC 32.1, RDW 18.0 H, Plt Count 385, MPV 8.9, Neut % (Auto) 67.2, Lymph % (Auto) 26.0, [place] % (Auto) 4.8, Eos % (Auto) 1.6, Baso % (Auto) 0.4, Neut # (Auto) 6.5, Lymph # (Auto) 2.5, [place] # (Auto) 0.5, Eos # (Auto) 0.2, Baso # (Auto) 0.0 I & O for Labs for Last 24 Hours: Intake & Output 01/26/24 01/27/24 01/28/24 01/29/24 11:59 11:59 11:59 11:59 Weight 186 lb Head: Present normocephalic ENT: Present normal exam Neck: Present normal inspection Respiratory: Present normal respiratory effort; Absent accessory muscle use Assessment and Plan *Assessment and plan (1) Normal delivery at term: Status: Acute Category: Medical Code(s): O80 - Encounter for full-term uncomplicated delivery Plan She continues to do very well. She is eating and drinking and ambulating. She is 1 day from a vaginal delivery. Her lochia is normal. She is breast-feeding. We will plan to send her home tomorrow.
[2024-01-29] MEDS: PRENATAL MULTIVITAMIN W/IRON 1 EACH PO (16:27)
[2024-01-29 17:20] VITALS: BP 131/67; PULSE 80; RESP 18; TEMP 36.8; O2SAT 99
[2024-01-30] MEDS: ACETAMINOPHEN 500MG TAB 1000 MG PO ×2 (04:41→10:35)
[2024-01-30 08:40] VITALS: BP 124/73; PULSE 65; RESP 20; TEMP 36.7; O2SAT 100
--- NOTE | 2024-01-30 09:00 | EXP.DC.SUM ---
General Admission date:: 01/28/24 Discharge date: 01/30/24 HPI HPI HPI: Jennifer Lubin is a 33-year-old at 38 weeks and 2 days gestation who presented to labor and delivery with regular painful contractions. Her has been uncomplicated. On presentation patient endorsed good movement and denies any leakage of fluid or vaginal bleeding. O+, antibody negative, rubella immune, hepatitis B negative, hepatitis C negative, RPR negative, HIV negative 1 hour GTT: 116 GBS negative Hospital Course Hospital Course Hospital Course: She arrived in active labor and progressed to full dilation. She delivered spontaneously a liveborn female child at 3:39 PM in the afternoon of January 28, 2024. The baby weighed 6 pounds 6 ounces and was 19 inches long. She had Apgars of 8 at 1 minute and 9 at 5 minutes. There were no perineal or vaginal lacerations. She has a well and has remained afebrile throughout her hospitalization. She is eating and drinking and ambulating. She is breast-feeding. Her lochia is normal. She has O+ blood, she is rubella immune and was group B streptococcus negative. She is discharged home to follow-up with me in approximately 2 weeks time. She will continue with her vitamins and iron. She was given the usual instructions with respect to limiting her activity. Her condition on discharge is stable and improved. Exam Data for Last 24 hours Vital signs and Labs for Last 24 Hours: Temp Pulse Resp BP Pulse Ox O2 Del Method 98.1 F 65 20 124/73 100 Room Air 01/30/24 08:40 01/30/24 08:40 01/30/24 08:40 01/30/24 08:40 01/30/24 08:40 01/30/24 08:40 I & O for Last 24 hours: Intake & Output 01/27/24 01/28/24 01/29/24 01/30/24 11:59 11:59 11:59 11:59 Weight 186 lb Constitutional Constitutional: no acute distress *Routine HEENT Exam Head: Present normocephalic *Routine Neck Exam Neck: Present full ROM *Routine Respiratory Exam Respiratory: Present normal respiratory effort; Absent accessory muscle use DS: Diagnosis Discharge Diagnosis (1) Normal delivery at term: Status: Acute Code(s): O80 - Encounter for full-term uncomplicated delivery Meds Home Medications and Allergies Home Medications ?Medication ?Instructions ?Recorded ?Confirmed ?Type PNV 153-FA 400 mcg-om3 35 mg-dha 1 tab PO DAILY 04/13/20 01/28/24 History 25 mg-epa 5 mg-fish oil chew tablet ( Gummies) ferrous sulfate 325 mg (65 mg 325 mg PO DAILY #30 tabs 12/05/23 01/28/24 Rx iron) tablet promethazine 12.5 mg tablet 12.5 mg PO Q4HP PRN nausea and 12/19/23 01/28/24 History vomiting New Prescriptions to Start Prescriptions: Allergies Allergy/AdvReac Type Severity Reaction Status Date / Time ciprofloxacin [From CIPRO] Allergy Unknown Verified 01/24/24 09:04 hydrocodone [From LORTAB] Allergy Unknown PATIENT Verified 01/24/24 09:04 CAN TAKE PLAIN TYLENOL latex [LATEX] Allergy Unknown Verified 01/24/24 09:04 Discharge Plan Disposition Patient Disposition: Home, Self-Care Discharge Order Discharge Orders: Discharge Order (Routine); Ordered 01/30/24 Ordered By: Olegario Huitron Follow up Plan Follow up with: Olegario Huitron MD [Staff Physician] - 02/13/24 2:00 pm Prescriptions/Medication Reconciliation: Continued Gummies 400 mcg-35 mg- 25 mg-5 mg tablet,chewable 1 tab PO DAILY ferrous sulfate 325 mg (65 mg iron) tablet 325 mg PO DAILY Qty: 30 2RF promethazine 12.5 mg tablet 12.5 mg PO Q4HP PRN (Reason: nausea and vomiting) Problem Reconciliation Problems Reviewed?: Yes Patient Discharge Instructions ACTIVITY: Continue current activity and No heavy lifting DIET: continue same diet Print Language: Filipino Providers Primary Care Provider: Archana Schultz Admit Provider: Latricia Banks Attending Provider: Latricia Banks
[2024-01-30] MEDS: IBUPROFEN 400 MG TABLET 800 MG PO (10:35)
[2024-01-30 13:12] LABS: Rapid Plasma Reagin Ab Titer Non Reactive titer (NonRea<1:1)
== END 2024-01-30 11:30 | disposition home or self-care (01) | DRG 807 ==
LOC: OBOUT 14:14 → OB 14:14
PROVIDERS: Admitting Provider Obstetrics & Gynecology; PCP Nurse Practitioner; Visit Provider Obstetrics & Gynecology
DX: O99.334 Smoking (tobacco) complicating childbirth (principal); Z37.0 Single live birth; F17.210 Nicotine dependence, cigarettes, uncomplicated; Z3A.38 38 weeks gestation of pregnancy
CPT/HCPCS: 36415; 59025; 80307; 81001; 85025; 86593; 86850